=== PATIENT | female | born 2000 | race Caucasian/White ===

== ENCOUNTER 2018-08-28 06:30 | Emergency (ER) | payer OTHER ==
[~2018-08-28] VITALS: Ht 160 cm; Wt 46.7 kg
[2018-08-28] MEDS ORDERED: FAMOTIDINE 20MG/2ML IV (PEPCID) IV STA (06:44)
[2018-08-28] MEDS ORDERED: NS IV 1000 ML 1,000 ML IV STA (06:44)
[2018-08-28 06:45] LABS: BILIRUBIN,URINE NEGATIVE (NEGATIVE); CLARITY,URINE CLEAR; COLOR,URINE YELLOW; GLUCOSE, URINE (UA) NEGATIVE (NEGATIVE); KETONES,URINE NEGATIVE (NEGATIVE); LEUKOCYTE ESTERASE ,URINE 2+ (NEGATIVE); NITRITE,URINE NEGATIVE (NEGATIVE); PH,URINE 7 (5-9); PROTEIN,URINE 1+ (NEGATIVE); UROBILINOGEN,URINE NORMAL (NORMAL)
[2018-08-28] MEDS ORDERED: ONDANSETRON 4 MG/2 ML (SDV) Z0FRAN IVP ONE ×2 (06:45→07:30)
[2018-08-28 06:55] LABS: BASOPHILS % (AUTO) 0 % (0-10); EOSINOPHILS % (AUTO) 1 % (0-10); HEMATOCRIT 36 % (35-52); HEMOGLOBIN 12.3 G/DL (11.5-16.0); LYMPHOCYTES # (AUTO) 1.3 X 10^3 (1.0-4.0); LYMPHOCYTES % (AUTO) 24 % (12-44); MEAN CORPUSCULAR HEMOGLOBIN 30 PG (25-34); MEAN CORPUSCULAR HGB CONC 35 G/DL (32-36); MEAN CORPUSCULAR VOLUME 88 FL (80-99); MEAN PLATELET VOLUME 9.8 FL (7.4-10.4); MONOCYTES # (AUTO) 0.5 X 10^3 (0.0-1.0); MONOCYTES % (AUTO) 9 % (0-12); NEUTROPHILS # (AUTO) 3.6 X 10^3 (1.8-7.8); NEUTROPHILS % (AUTO) 65 % (42-75); PLATELET COUNT 188 10^3/uL (130-400); RED BLOOD COUNT 4.05 10^6/uL (4.35-5.85); RED CELL DISTRIBUTION WIDTH 12.9 % (10.0-14.5); WHITE BLOOD COUNT 5.4 10^3/uL (4.3-11.0)
[2018-08-28 06:57] LABS: BACTERIA,URINE NEGATIVE /HPF
[2018-08-28 06:58] LABS: RED BLOOD CELL CASTS,URINE RARE /LPF
--- NOTE | 2018-08-28 07:11 | ED General ---
General Chief Complaint: Abdominal/GI Problems Stated Complaint: POSS FOOD POISONING,KIDNEY PAIN Nursing Triage Note: PT STATES SHE BEGAN TO EXPERIENCE NAUSEA AND VOMITING AROUND 0200 TODAY AFTER EATING COMORAN TAKEOUT LAST NIGHT. Source of Information: Patient Exam Limitations: No Limitations History of Present Illness Date Seen by Provider: Aug 28, 2018 Time Seen by Provider: 06:40 Initial Comments Here with report of kidney pain, nausea, vomiting and diarrhea. Onset about 2 a.m. States that she ate some Azeri food at about 6 or 7 p.m. She was doing fine until midnight when she woke up feeling rumbly and then started vomiting and diarrhea that I am. States that she vomited multiple times and can't even keep water crackers down. Has had a few episodes of diarrhea. Denies blood in her vomit or stool. Reports that she has kidney problems and some sort which seems to be mostly related to urinary tract infections. She moved to the [facility] a few months ago from [place]. She is supposed to see kidney specialist for something in September although she is not exactly sure what that is. She reports that she has scar tissue in her kidneys. Does admit to recent runny nose. Feels like she has fevers. Reports body aches. Timing/Duration: 12 Hours Severity: Moderate Modifying Factors: improves with Rest Associated Systoms: No Chest Pain, No Cough; Fever/Chills, Nausea/Vomiting; No Shortness of Air, No Weakness Allergies and Home Medications Allergies Coded Allergies: No Known Drug Allergies (Unverified , 08/28/18) Patient Home Medication List Home Medication List Reviewed: Yes Review of Systems Review of Systems Constitutional: see HPI, chills, fever; No weakness EENTM: nose congestion; No throat pain Respiratory: No cough, No short of breath Cardiovascular: No chest pain, No syncope Gastrointestinal: abdominal pain (diffuse cramping), diarrhea, nausea, vomiting Genitourinary: No dysuria; pain : No LMP: Aug 07, 2018 Musculoskeletal: muscle pain; No muscle stiffness Skin: no symptoms reported All Other Systems Reviewed Negative Unless Noted: Yes Past Glltghk-Lbuqki-Kddqju Hx Past Med/Social Hx: Reviewed Nursing Past Med/Soc Hx Patient Social History Alcohol Use: Denies Use Recreational Drug Use: No Smoking Status: Never a Smoker Recent Foreign Travel: No Contact w/Someone Who Travel: No Recent Infectious Disease Expo: No Recent Hopitalizations: Yes (04/07/18) Immunizations Up To Date PED Vaccines UTD: Yes Seasonal Allergies Seasonal Allergies: No Past Medical History Surgeries: Yes (corrected left hip displasia ) Orthopedic Respiratory: No Cardiac: No Neurological: No Genitourinary: Yes Kidney Infection, UTI-Chronic Gastrointestinal: No Musculoskeletal: Yes (LEFT HIP DISPLASIA- CORRECTED) Endocrine: No HEENT: No Cancer: No Psychosocial: Yes (HOSPITALIZED FOR SUICIDE -04/24) Anxiety, Suicide Attempts, Depression Integumentary: No Family Medical History Reviewed Nursing Family Hx Physical Exam Vital Signs Vital Signs - First Documented 08/28/18 06:35 Temp 96.9 Pulse 136 Resp 22 B/P (MAP) 135/64 O2 Delivery Room Air Capillary Refill : Height, Weight, BMI Height: 5'3.00" Weight: 103lbs. oz. 46.613969fs; 14.06 BMI Method: General Appearance: WD/WN, Mild Distress HEENT: PERRL/EOMI, Pharyngeal Erythema, Other (mild nasal congestion with clear rhinorrhea and mild/moderate erythema) Neck: Full Range of Motion, Normal Inspection, Non Tender, Supple Respiratory: Lungs Clear, Normal Breath Sounds Cardiovascular: No Murmur, Tachycardia Gastrointestinal: Non Tender, Soft Back: Normal Inspection, No CVA Tenderness, No Vertebral Tenderness Extremity: Normal Range of Motion, Non Tender Neurologic/Psychiatric: Alert, Oriented x3 Skin: Normal Color, Warm/Dry Progress/Results/Core Measures Suspected Sepsis SIRS Temperature:96.9 Pulse: Respiratory Rate: Laboratory Tests 08/28/18 06:47: White Blood Count 5.4 Blood Pressure / Mean: Laboratory Tests 08/28/18 06:47: Creatinine 0.82, Platelet Count 188, Total Bilirubin 1.2H Results/Orders Lab Results Laboratory Tests Test 08/28/18 06:36 08/28/18 06:47 Range/Units Urine Color YELLOW Urine Clarity CLEAR Urine pH 7 5-9 Urine Specific [place] 1.010 L 1.016-1.022 Urine Protein 1+ H NEGATIVE Urine Glucose (UA) NEGATIVE NEGATIVE Urine Ketones NEGATIVE NEGATIVE Urine Nitrite NEGATIVE NEGATIVE Urine Bilirubin NEGATIVE NEGATIVE Urine Urobilinogen NORMAL NORMAL MG/DL Urine Leukocyte Esterase 2+ H NEGATIVE Urine RBC (Auto) NEGATIVE NEGATIVE Urine RBC NONE /HPF Urine WBC 10-25 H /HPF Urine Squamous Epithelial Cells 10-25 H /HPF Urine Crystals NONE /LPF Urine Bacteria NEGATIVE /HPF Urine Casts NONE /LPF Urine Red Blood Cell Casts RARE H /LPF Urine Mucus NEGATIVE /LPF Urine Culture Indicated YES White Blood Count 5.4 4.3-11.0 10^3/uL Red Blood Count 4.05 L 4.35-5.85 10^6/uL Hemoglobin 12.3 11.5-16.0 G/DL Hematocrit 36 35-52 % Mean Corpuscular Volume 88 80-99 FL Mean Corpuscular Hemoglobin 30 25-34 PG Mean Corpuscular Hemoglobin Concent 35 32-36 G/DL Red Cell Distribution Width 12.9 10.0-14.5 % Platelet Count 188 130-400 10^3/uL Mean Platelet Volume 9.8 7.4-10.4 FL Neutrophils (%) (Auto) 65 42-75 % Lymphocytes (%) (Auto) 24 12-44 % Monocytes (%) (Auto) 9 0-12 % Eosinophils (%) (Auto) 1 0-10 % Basophils (%) (Auto) 0 0-10 % Neutrophils # (Auto) 3.6 1.8-7.8 X 10^3 Lymphocytes # (Auto) 1.3 1.0-4.0 X 10^3 Monocytes # (Auto) 0.5 0.0-1.0 X 10^3 Eosinophils # (Auto) 0.0 0.0-0.3 10^3/uL Basophils # (Auto) 0.0 0.0-0.1 10^3/uL Sodium Level 140 135-145 MMOL/L Potassium Level 3.8 3.6-5.0 MMOL/L Chloride Level 112 H 98-107 MMOL/L Carbon Dioxide Level 18 L 21-32 MMOL/L Anion Gap 10 5-14 MMOL/L Blood Urea Nitrogen 10 7-18 MG/DL Creatinine 0.82 0.60-1.30 MG/DL Estimat Glomerular Filtration Rate > 60 BUN/Creatinine Ratio 12 Glucose Level 131 H 70-105 MG/DL Calcium Level 9.4 8.5-10.1 MG/DL Corrected Calcium 8.5-10.1 MG/DL Magnesium Level 2.1 1.8-2.4 MG/DL Total Bilirubin 1.2 H 0.1-1.0 MG/DL Aspartate Amino Transf (AST/SGOT) 15 5-34 U/L Alanine Aminotransferase (ALT/SGPT) 13 0-55 U/L Alkaline Phosphatase 82 40-136 U/L C-Reactive Protein High Sensitivity 0.62 H 0.00-0.50 MG/DL Total Protein 8.1 6.4-8.2 GM/DL Albumin 4.8 H 3.2-4.5 GM/DL Lipase 33 8-78 U/L My Orders Orders - AISLINN VELA MD Saline Lock/Iv-Start (08/28/18 06:36) Urine Bedside (08/28/18 06:36) Cbc With Automated Diff (08/28/18 06:36) Comprehensive Metabolic Panel (08/28/18 06:36) Hs C Reactive Protein (08/28/18 06:36) Ua Culture If Indicated (08/28/18 06:36) Ondansetron Injection (Zofran Injectio (08/28/18 06:45) Ns Iv 1000 Ml (Sodium Chloride 0.9%) (08/28/18 06:44) Famotidine Injection (Pepcid Injection) (08/28/18 06:44) Lipase (08/28/18 06:44) Magnesium (08/28/18 06:44) Urine Culture (08/28/18 06:36) Ketorolac Injection (Toradol Injection) (08/28/18 07:18) Ondansetron Injection (Zofran Injectio (08/28/18 07:30) Saline Lock/Iv-Start (08/28/18 07:38) Ns Iv 1000 Ml (Sodium Chloride 0.9%) (08/28/18 07:38) Promethazine Injection (Phenergan Injec (08/28/18 08:08) Diphenhydramine Injection (Benadryl Inje (08/28/18 08:15) Fentanyl Injection (Sublimaze Injection (08/28/18 08:55) Medications Given in ED Current Medications Medications Dose Ordered Sig/David Route Start Time Stop Time Status Last Admin Dose Admin Ondansetron HCl 4 mg ONCE ONCE IVP 08/28/18 06:45 08/28/18 06:47 DC 08/28/18 06:53 4 MG Ondansetron HCl 4 mg ONCE ONCE IVP 08/28/18 07:30 08/28/18 07:31 DC 08/28/18 07:29 4 MG Sodium Chloride 1,000 ml @ 0 mls/hr Q0M ONCE IV 08/28/18 07:38 08/28/18 07:39 DC 08/28/18 07:42 1,000 MLS/HR Vital Signs/I&O 08/28/18 06:35 Temp 96.9 Pulse 136 Resp 22 B/P (MAP) 135/64 O2 Delivery Room Air Capillary Refill : Point of Care Testing Urine -Bedside: Negative Progress Note : Progress Note Seen and evaluated. IV, labs, UA, normal saline 1 L bolus, Zofran 4 mg IV and Pepcid 20 mg IV ordered. Monitor patient. Patient with continued nausea and vomiting. Phenergan 12.5 mg IV and Benadryl 25 mg IV ordered. Patient was complaining of pain and did receive 15 mg of Toradol IV. Ultimately received 50 g of fentanyl IV. This did help significantly. 1010: Overall patient much improved. Labs reviewed. Question of urinary tract infection but appears to be grossly contaminated. We will wait pending cultures to treat. Discharged home with return precautions. Patient verbalize understanding instructions and agreement with plan. Departure Impression Primary Impression: Nausea and vomiting Qualified Codes: R11.2 - Nausea with vomiting, unspecified Additional Impression: Abdominal pain Qualified Codes: R10.84 - Generalized abdominal pain Disposition: 01 HOME, SELF-CARE Condition: Improved Departure-Patient Inst. Decision time for Depature: 10:16 Referrals: NO,LOCAL PHYSICIAN (PCP/Family) Primary Care Physician Patient Instructions: Acute Abdomen (Belly Pain), Child (DC), Nausea and Vomiting, Adult (DC) Add. Discharge Instructions: All discharge instructions reviewed with patient and/or family. Voiced understanding. Clear liquid for light diet for 24 hours and then advance as tolerated. Drink plenty of fluids. You may take ibuprofen 400 mg every 6 hours as needed for fever or pain. You may take Tylenol/acetaminophen 500 mg every 6 hours as needed for fever or pain. Follow-up with your DrVijay in a few days for recheck as needed. Return for worse pain, fever, vomiting, weakness, breathing problems or other concerns as needed. Scripts Ondansetron (Ondansetron Odt) 4 Mg Tab.rapdis 4 MG PO Q6H PRN for NAUSEA/VOMITING, #10 TAB 0 Refills Prov: AISLINN VELA MD 08/28/18 AISLINN VELA MD Aug 28, 2018 07:11
[2018-08-28 07:15] LABS: ALANINE AMINOTRANSFERASE 13 U/L (0-55); ALBUMIN 4.8 GM/DL (3.2-4.5); ALKALINE PHOSPHATASE 82 U/L (40-136); BILIRUBIN,TOTAL 1.2 MG/DL (0.1-1.0); BUN/CREATININE RATIO 12; CALCIUM 9.4 MG/DL (8.5-10.1); CARBON DIOXIDE 18 MMOL/L (21-32); CHLORIDE 112 MMOL/L (98-107); CREATININE SERUM 0.82 MG/DL (0.60-1.30); GFR ESTIMATED > 60; GLUCOSE 131 MG/DL (70-105); LIPASE 33 U/L (8-78); MAGNESIUM 2.1 MG/DL (1.8-2.4); POTASSIUM 3.8 MMOL/L (3.6-5.0); SODIUM 140 MMOL/L (135-145); TOTAL PROTEIN 8.1 GM/DL (6.4-8.2)
[2018-08-28] MEDS ORDERED: KETOROLAC 30 MG/ML VIAL IVP STA (07:18)
[2018-08-28] MEDS ORDERED: NS IV 1000 ML 1,000 ML IV ONE (07:38)
[2018-08-28] MEDS ORDERED: PROMETHAZINE INJ 25 MG/ML (PHENERGAN) AMP IVP STA (08:08)
[2018-08-28] MEDS ORDERED: diphenhydrAMINE 50 MG/ML INJ (BENADRYL) IM ONE (08:15)
[2018-08-28] MEDS ORDERED: diphenhydrAMINE 50 MG/ML INJ (BENADRYL) IVP ONE (08:15)
[2018-08-28] MEDS ORDERED: fentaNYL INJECTION 100 MCG/2 ML AMP IVP STA (08:55)
[2018-08-28] MEDS ORDERED: ONDA4TAB11 PO (10:19)
== END 2018-08-28 10:32 | disposition home or self-care (01) ==
LOC: ER 06:33
DX: R11.2 Nausea with vomiting, unspecified (principal); R10.84 Generalized abdominal pain; F41.9 Anxiety disorder, unspecified; F32.9 Major depressive disorder, single episode, unspecified; Z87.440 Personal history of urinary (tract) infections
CPT/HCPCS: 36415; 80053; 81000; 83690; 83735; 84703; 85025; 86141; 87088

== ENCOUNTER 2018-09-24 15:57 | Emergency (ER) | payer OTHER ==
[~2018-09-24] VITALS: Ht 167.6 cm; Wt 46.7 kg
[~2018-09-24 15:57] MED LIST: ONDA4TAB11 PO
[2018-09-24] MEDS ORDERED: KETOROLAC 30 MG/ML VIAL IVP ONE (17:15)
[2018-09-24] MEDS ORDERED: ONDANSETRON 4 MG/2 ML (SDV) Z0FRAN IVP ONE (17:15)
[2018-09-24] MEDS ORDERED: NS IV 1000 ML 1,000 ML IV SCH (17:15)
[2018-09-24 17:21] LABS: BASOPHILS % (AUTO) 0 % (0-10); EOSINOPHILS % (AUTO) 0 % (0-10); HEMATOCRIT 40 % (35-52); HEMOGLOBIN 14.1 G/DL (11.5-16.0); LYMPHOCYTES # (AUTO) 0.6 X 10^3 (1.0-4.0); LYMPHOCYTES % (AUTO) 8 % (12-44); MEAN CORPUSCULAR HEMOGLOBIN 31 PG (25-34); MEAN CORPUSCULAR HGB CONC 35 G/DL (32-36); MEAN CORPUSCULAR VOLUME 87 FL (80-99); MEAN PLATELET VOLUME 9.8 FL (7.4-10.4); MONOCYTES # (AUTO) 0.4 X 10^3 (0.0-1.0); MONOCYTES % (AUTO) 6 % (0-12); NEUTROPHILS # (AUTO) 6.5 X 10^3 (1.8-7.8); NEUTROPHILS % (AUTO) 86 % (42-75); PLATELET COUNT 180 10^3/uL (130-400); RED CELL DISTRIBUTION WIDTH 12.9 % (10.0-14.5); WHITE BLOOD COUNT 7.6 10^3/uL (4.3-11.0)
--- NOTE | 2018-09-24 17:28 | NUR ---
Pt arrived with kidney pain. Pt stated she has previously had infections. The pain started around 0800 this morning. She stated her heart is racing and hard to catch her breath. Pt was alert and oriented at arrival.
[2018-09-24 17:34] LABS: ALANINE AMINOTRANSFERASE 11 U/L (0-55); ALBUMIN 5.1 GM/DL (3.2-4.5); ALKALINE PHOSPHATASE 84 U/L (40-136); AMYLASE 34 U/L (25-125); BILIRUBIN,TOTAL 2.1 MG/DL (0.1-1.0); BUN/CREATININE RATIO 17; CALCIUM 9.7 MG/DL (8.5-10.1); CARBON DIOXIDE 21 MMOL/L (21-32); CHLORIDE 109 MMOL/L (98-107); CREATININE SERUM 0.78 MG/DL (0.60-1.30); GFR ESTIMATED > 60; GLUCOSE 105 MG/DL (70-105); LIPASE 25 U/L (8-78); POTASSIUM 3.8 MMOL/L (3.6-5.0); SODIUM 141 MMOL/L (135-145); TOTAL PROTEIN 8.4 GM/DL (6.4-8.2)
[2018-09-24 17:43] LABS: BAND NEUTROPHILS 8 %; BASOPHILS % (MANUAL) 0 %; EOSINOPHILS % (MANUAL) 0 %; LYMPHOCYTES % (MANUAL) 11 %; MONOCYTES % (MANUAL) 3 %; NEUTROPHILS % (MANUAL) 78 %; RBC MORPH NORMAL
[2018-09-24 18:14] LABS: BILIRUBIN,URINE NEGATIVE (NEGATIVE); CLARITY,URINE SLIGHTLY CLOUDY; COLOR,URINE YELLOW; GLUCOSE, URINE (UA) NEGATIVE (NEGATIVE); KETONES,URINE NEGATIVE (NEGATIVE); LEUKOCYTE ESTERASE ,URINE 2+ (NEGATIVE); NITRITE,URINE POSITIVE (NEGATIVE); PH,URINE 5 (5-9); PROTEIN,URINE 1+ (NEGATIVE); UROBILINOGEN,URINE NORMAL (NORMAL)
[2018-09-24 18:21] LABS: RBC,URINE RARE /HPF
[2018-09-24 18:22] LABS: BACTERIA,URINE LARGE /HPF
[2018-09-24] MEDS ORDERED: cefTRIAXone FOR IV USE 1,000 MG in NS (IVPB) 50 ML IV ONE (18:45)
[2018-09-24] MEDS ORDERED: PHEN-639 PO (18:57)
[2018-09-24] MEDS ORDERED: ONDN4T PO (18:57)
[2018-09-24] MEDS ORDERED: CEPH-507 PO (18:57)
--- NOTE | 2018-09-24 18:58 | ED Abdominal Pain ---
General Chief Complaint: General Problems/Pain Stated Complaint: ABDOMINAL PAIN, VOMITING Nursing Triage Note: Pt. advises she began experiencing abdominal pain radiating to her back at approximately 8am that has gotten progressively worse. She advises she was seen at the clinic and they advised her that her urine was normal. She advised that she feels as though her heart is racing. Source of Information: Patient Exam Limitations: No Limitations History of Present Illness Date Seen by Provider: Sep 24, 2018 Time Seen by Provider: 17:11 Initial Comments 17-year-old female who presents to the emergency room with complaints of suprapubic abdominal pain that radiates to her low back that started approximately 0800 of this morning. She denies any vaginal discharge she was seen and evaluated the [facility] today and they did a urinalysis which they reported was normal. She feels like she's been having chills on her heart is regular been racing. Denies taking her temperature to see if she is febrile. Timing/Duration: 12 Hours Severity/Quality: Mild, Burning, Cramping Location: Suprapubic Radiation: Back Associated Symptoms: Back Pain Allergies and Home Medications Allergies Coded Allergies: No Known Drug Allergies (Unverified , 08/28/18) Home Medications Cephalexin 500 Mg Capsule, 500 MG PO BID Prescribed by: MANOLO YEBOAH on 09/24/181856 Ondansetron 4 Mg Tab.rapdis, 4 MG PO Q6H PRN for NAUSEA/VOMITING Prescribed by: AISLINN VELA on 08/28/18 1019 Ondansetron HCl 4 Mg Tab, 4 MG PO Q4H PRN for NAUSEA/VOMITING-1ST LINE Prescribed by: MANOLO YEBOAH on 09/24/18 185 Phenazopyridine HCl 100 Mg Tablet, 100 MG PO TID Prescribed by: MANOLO YEBOAH on 09/24/181856 Patient Home Medication List Home Medication List Reviewed: Yes Review of Systems Review of Systems Constitutional: no symptoms reported, see HPI Gastrointestinal: See HPI, Abdominal Pain Musculoskeletal: see HPI, back pain Past Wbwzdsb-Oawucs-Akdfsr Hx Past Med/Social Hx: Reviewed Nursing Past Med/Soc Hx Patient Social History Alcohol Use: Denies Use Recreational Drug Use: No Smoking Status: Never a Smoker 2nd Hand Smoke Exposure: No Recent Foreign Travel: No Contact w/Someone Who Travel: No Recent Infectious Disease Expo: No Recent Hopitalizations: No Physical Abuse: No Sexual Abuse: No Mistreated: No Fear: No Immunizations Up To Date PED Vaccines UTD: Yes Seasonal Allergies Seasonal Allergies: No Past Medical History Surgeries: Yes (corrected left hip displasia ) Orthopedic Respiratory: No Cardiac: No Neurological: No Genitourinary: Yes Kidney Infection, UTI-Chronic Gastrointestinal: No Musculoskeletal: Yes (LEFT HIP DISPLASIA- CORRECTED) Endocrine: No HEENT: No Cancer: No Psychosocial: Yes (HOSPITALIZED FOR SUICIDE -04/24) Anxiety, Suicide Attempts, Depression Integumentary: No Family Medical History Reviewed Nursing Family Hx Physical Exam Vital Signs Vital Signs - First Documented 09/24/18 09/24/18 17:04 19:20 Temp 98.3 Pulse 155 Resp 16 B/P (MAP) 112/57 Pulse Ox 100 O2 Delivery Room Air Capillary Refill : Height/Weight/BMI Height: 5'6.00" Weight: 103lbs. oz. 46.502152yo; 14.06 BMI Method:Stated General Appearance: WD/WN, no apparent distress Respiratory: chest non-tender, lungs clear, normal breath sounds, no respiratory distress, no accessory muscle use Cardiovascular: normal peripheral pulses, regular rate, rhythm, no edema, no gallop, no JVD, no murmur Gastrointestinal: normal bowel sounds, non tender, soft, no organomegaly, no pulsatile mass Neurologic/Psychiatric: alert, normal mood/affect, oriented x 3 Skin: normal color, warm/dry Progress/Results/Core Measures Results/Orders Lab Results Laboratory Tests Test 09/24/18 17:10 09/24/18 18:02 Range/Units White Blood Count 7.6 4.3-11.0 10^3/uL Red Blood Count 4.60 4.35-5.85 10^6/uL Hemoglobin 14.1 11.5-16.0 G/DL Hematocrit 40 35-52 % Mean Corpuscular Volume 87 80-99 FL Mean Corpuscular Hemoglobin 31 25-34 PG Mean Corpuscular Hemoglobin Concent 35 32-36 G/DL Red Cell Distribution Width 12.9 10.0-14.5 % Platelet Count 180 130-400 10^3/uL Mean Platelet Volume 9.8 7.4-10.4 FL Neutrophils (%) (Auto) 86 H 42-75 % Lymphocytes (%) (Auto) 8 L 12-44 % Monocytes (%) (Auto) 6 0-12 % Eosinophils (%) (Auto) 0 0-10 % Basophils (%) (Auto) 0 0-10 % Neutrophils # (Auto) 6.5 1.8-7.8 X 10^3 Lymphocytes # (Auto) 0.6 L 1.0-4.0 X 10^3 Monocytes # (Auto) 0.4 0.0-1.0 X 10^3 Eosinophils # (Auto) 0.0 0.0-0.3 10^3/uL Basophils # (Auto) 0.0 0.0-0.1 10^3/uL Neutrophils % (Manual) 78 % Lymphocytes % (Manual) 11 % Monocytes % (Manual) 3 % Eosinophils % (Manual) 0 % Basophils % (Manual) 0 % Band Neutrophils 8 % Blood Morphology Comment NORMAL Sodium Level 141 135-145 MMOL/L Potassium Level 3.8 3.6-5.0 MMOL/L Chloride Level 109 H 98-107 MMOL/L Carbon Dioxide Level 21 21-32 MMOL/L Anion Gap 11 5-14 MMOL/L Blood Urea Nitrogen 13 7-18 MG/DL Creatinine 0.78 0.60-1.30 MG/DL Estimat Glomerular Filtration Rate > 60 BUN/Creatinine Ratio 17 Glucose Level 105 70-105 MG/DL Calcium Level 9.7 8.5-10.1 MG/DL Corrected Calcium 8.5-10.1 MG/DL Total Bilirubin 2.1 H 0.1-1.0 MG/DL Aspartate Amino Transf (AST/SGOT) 14 5-34 U/L Alanine Aminotransferase (ALT/SGPT) 11 0-55 U/L Alkaline Phosphatase 84 40-136 U/L Total Protein 8.4 H 6.4-8.2 GM/DL Albumin 5.1 H 3.2-4.5 GM/DL Amylase Level 34 25-125 U/L Lipase 25 8-78 U/L Serum Test, Qualitative NEGATIVE NEGATIVE Urine Color YELLOW Urine Clarity SLIGHTLY CLOUDY Urine pH 5 5-9 Urine Specific [place] 1.015 L 1.016-1.022 Urine Protein 1+ H NEGATIVE Urine Glucose (UA) NEGATIVE NEGATIVE Urine Ketones NEGATIVE NEGATIVE Urine Nitrite POSITIVE H NEGATIVE Urine Bilirubin NEGATIVE NEGATIVE Urine Urobilinogen NORMAL NORMAL MG/DL Urine Leukocyte Esterase 2+ H NEGATIVE Urine RBC (Auto) 3+ H NEGATIVE Urine RBC RARE /HPF Urine WBC 5-10 H /HPF Urine Squamous Epithelial Cells 5-10 /HPF Urine Crystals NONE /LPF Urine Bacteria LARGE H /HPF Urine Casts NONE /LPF Urine Mucus NEGATIVE /LPF Urine Culture Indicated YES Micro Results Microbiology 09/24/18 Urine Culture - Final, Complete Escherichia coli My Orders Orders - MANOLO YEBOAH Comprehensive Metabolic Panel (09/24/18 17:11) Lipase (09/24/18 17:11) Amylase (09/24/18 17:11) Ua Culture If Indicated (09/24/18 17:11) Hcg,Qualitative Serum (09/24/18 17:11) Saline Lock/Iv-Start (09/24/18 17:11) Cbc With Automated Diff (09/24/18 17:11) Ketorolac Injection (Toradol Injection) (09/24/18 17:15) Ns Iv 1000 Ml (Sodium Chloride 0.9%) (09/24/18 17:15) Ondansetron Injection (Zofran Injectio (09/24/18 17:15) Manual Differential (09/24/18 17:10) Urine Culture (09/24/18 18:02) Ceftriaxone For Iv Use (Rocephin For I (09/24/18 18:45) Medications Given in ED Vital Signs/I&O 09/24/18 09/24/18 17:04 19:20 Temp 98.3 99.6 Pulse 155 100 Resp 16 18 B/P (MAP) 112/57 Pulse Ox 100 O2 Delivery Room Air Room Air Progress Progress Note : Time: 18:55 Progress Note I have seen and evaluated the patient. I've informed her of her laboratory findings. I have given her an IV dose of Rocephin. She agrees with plan of care , plans for discharge, return precautions were given. Departure Impression Primary Impression: Urinary tract infection Disposition: 01 HOME, SELF-CARE Condition: Stable/Unchanged Departure-Patient Inst. Decision time for Depature: 18:55 Referrals: [facility] (PCP/Family) Primary Care Physician Patient Instructions: Urinary Tract Infection, Adult (DC) Add. Discharge Instructions: Take medications as directed. Ibuprofen and Tylenol as directed by the bottle for pain and fever. Follow-up with [facility] within 1 week if no improvement. The Pyridium will turn her urine bright orange, this is normal, do not be alarmed. Return back to the emergency room for worsening symptoms or concerns as needed. All discharge instructions reviewed with patient and/or family. Voiced understanding. Scripts Phenazopyridine HCl (Pyridium) 100 Mg Tablet 100 MG PO TID, #6 TAB Prov: MANOLO YEBOAH 09/24/18 Ondansetron HCl (Zofran) 4 Mg Tab 4 MG PO Q4H PRN for NAUSEA/VOMITING-1ST LINE, #14 TAB Prov: MANOLO YEBOAH 09/24/18 Cephalexin (Keflex) 500 Mg Capsule 500 MG PO BID for 7 Days, #14 CAP Prov: MANOLO YEBOAH 09/24/18 MANOLO YEBOAH Sep 24, 2018 18:58
== END 2018-09-24 19:20 | disposition home or self-care (01) ==
LOC: EDUNIT# 15:57 → ER 15:58
DX: N39.0 Urinary tract infection, site not specified (principal); F41.9 Anxiety disorder, unspecified; F32.9 Major depressive disorder, single episode, unspecified; Z91.5 Personal history of self-harm; Z87.440 Personal history of urinary (tract) infections; Z87.448 Personal history of other diseases of urinary system
CPT/HCPCS: 36415; 80053; 81000; 82150; 83690; 84703; 85007; 85027; 87077; 87088; 87186

== ENCOUNTER 2018-10-26 09:06 | Emergency (ER) | payer OTHER ==
[~2018-10-26] VITALS: Ht 152.4 cm; Wt 52.6 kg
[~2018-10-26 09:06] MED LIST changes: +CEPH-507 PO; +ONDN4T PO; +PHEN-639 PO
[2018-10-26] MEDS ORDERED: NS IV 1000 ML 1,000 ML IV STA (09:34)
[2018-10-26] MEDS ORDERED: ONDANSETRON 4 MG/2 ML (SDV) Z0FRAN IVP ONE (09:45)
[2018-10-26 09:49] LABS: BILIRUBIN,URINE NEGATIVE (NEGATIVE); CLARITY,URINE SLIGHTLY CLOUDY; COLOR,URINE YELLOW; GLUCOSE, URINE (UA) NEGATIVE (NEGATIVE); KETONES,URINE NEGATIVE (NEGATIVE); LEUKOCYTE ESTERASE ,URINE 1+ (NEGATIVE); NITRITE,URINE NEGATIVE (NEGATIVE); PH,URINE 7 (5-9); PROTEIN,URINE 2+ (NEGATIVE); UROBILINOGEN,URINE NORMAL (NORMAL)
[2018-10-26 09:56] LABS: BACTERIA,URINE FEW /HPF; RBC,URINE RARE /HPF
--- NOTE | 2018-10-26 09:56 | ED GI ---
General Chief Complaint: General Problems/Pain Stated Complaint: POSS MED REACTION Nursing Triage Note: AMB TO ROOM WITH MALE ON ADMIT MALE WANTD TO SPEAK FOR PATIENT ASKED MALE TO LET ME TALK WITH HER. PATIENT REPORTS SAW DECAL DECORATOR AT [facility] FOR DREPRESSION YESTERDAY WAS STARED ON SERTALONE 100MG IS TO TAKE A 1/2 TABLET. APX 6A THIS AM WOKE UP SHAKEY WITH VOMITING AND DIARRHEA. Source of Information: Patient Exam Limitations: No Limitations (LAYLA ERAZO STUDENT) History of Present Illness Date Seen by Provider: Oct 26, 2018 Time Seen by Provider: 09:33 Initial Comments 17 y/o F presented for nausea, vomiting, and some diarrhea that started this morning at about 0600. She denies fever or chills overnight. She was started on sertraline 50mg for depression and anxiety yesterday by [facility] and thinks that this may be a reaction to this medication. She denies any prior reactions. She also has generalized shakes, which she gets when she is sick. She has not had any sick contacts. She is unable to tolerate food or liquid at this time. Timing/Duration: 1-3 Hours Severity/Quality: Mild, Cramping, Dull Location: Generalized Abdomen Radiation: No Radiation Activities at Onset: Other (upon waking this morning) Modifying Factors: Worsens With Eating; Improves With Lying down, Improves With Resting; Worsens With Vomiting Associated Symptoms: No Chest Pain; Diaphoresis; No Fever/Chills; Nausea/ Vomiting; No Rash, No Shortness of Air (LAYLA ERAZO STUDENT) Timing/Duration: 1-3 Hours, Constant Severity/Quality: Mild, Moderate, Cramping, Dull Location: Generalized Abdomen Radiation: No Radiation Modifying Factors: Worsens With Eating; Improves With Resting Associated Symptoms: Nausea/Vomiting; No Shortness of Air, No Weakness ( AISLINN VELA MD) Allergies and Home Medications Allergies Coded Allergies: No Known Drug Allergies (Unverified , 08/28/18) Home Medications Cephalexin 500 Mg Capsule, 500 MG PO BID Prescribed by: MANOLO YEBOAH on 09/24/18 1857 Ondansetron 4 Mg Tab.rapdis, 4 MG PO Q6H PRN for NAUSEA/VOMITING Prescribed by: AISLINN VELA on 08/28/18 1019 Ondansetron HCl 4 Mg Tab, 4 MG PO Q4H PRN for NAUSEA/VOMITING-1ST LINE Prescribed by: MANOLO YEBOAH on 09/24/181856 Phenazopyridine HCl 100 Mg Tablet, 100 MG PO TID Prescribed by: MANOLO YEBOAH on 09/24/181856 Patient Home Medication List Home Medication List Reviewed: Yes (LAYLA ERAZO) Home Medication List Reviewed: Yes (AISLINN VELA MD) Review of Systems Review of Systems Constitutional: No chills; diaphoresis; No fever; malaise, other (generalized shakes) EENTM: No Mouth Swelling, No Throat Swelling Respiratory: Denies Shortness of Air, Denies Wheezing Cardiovascular: Denies Chest Pain, Denies Lightheadedness Gastrointestinal: Abdominal Pain, Diarrhea, Nausea, Poor Appetite, Poor Fluid Intake, Vomiting Genitourinary: Denies Burning, Denies Frequency, Denies Flank Pain Musculoskeletal: No muscle pain, No muscle stiffness, No muscle cramps Skin: No pruritus, No rash Psychiatric/Neurological: Anxiety (started on sertraline 50mg yesterday), Depressed (LAYLA ERAZO) Constitutional: see HPI EENTM: No Symptoms Reported Respiratory: No Symptoms Reported Cardiovascular: No Symptoms Reported Gastrointestinal: See HPI; Denies Constipated, Denies Rectal Bleeding Genitourinary: No Symptoms Reported (AISLINN VELA MD) All Other Systems Reviewed Negative Unless Noted: Yes (AISLINN VELA MD) Past Rvlrkku-Ijlilp-Csbjyh Hx Past Med/Social Hx: Reviewed Nursing Past Med/Soc Hx (LAYLA ERAZO) Past Med/Social Hx: Reviewed Nursing Past Med/Soc Hx (AISLINN VELA MD) Patient Social History Alcohol Use: Denies Use Recreational Drug Use: No Smoking Status: Never a Smoker 2nd Hand Smoke Exposure: No Recent Foreign Travel: No Contact w/Someone Who Travel: No Recent Infectious Disease Expo: No Recent Hopitalizations: No (LAYLA ERAZO) Immunizations Up To Date PED Vaccines UTD: Yes (LAYLA ERAZO) Seasonal Allergies Seasonal Allergies: No (LAYLA ERAZO) Past Medical History Surgeries: Yes (corrected left hip displasia ) Orthopedic Respiratory: No Cardiac: No Neurological: No Genitourinary: Yes Kidney Infection, UTI-Chronic Gastrointestinal: No Musculoskeletal: Yes (LEFT HIP DISPLASIA- CORRECTED) Endocrine: No HEENT: No Cancer: No Psychosocial: Yes (HOSPITALIZED FOR SUICIDE -04/24) Anxiety, Suicide Attempts, Depression Integumentary: No (LAYLA ERAZO STUDENT) Family Medical History Reviewed Nursing Family Hx (LAYLA ERAZO) Reviewed Nursing Family Hx (AISLINN VELA MD) No Pertinent Family Hx (LAYLA ERAZO) No Pertinent Family Hx (AISLINN VELA MD) Physical Exam Vital Signs Vital Signs - First Documented 10/26/18 09:20 Temp 97.6 Pulse 131 Resp 18 B/P (MAP) 119/76 O2 Delivery Room Air (AISLINN VELA MD) Vital Signs Capillary Refill : (LAYLA ERAZO) Height/Weight/BMI Height: 5'6.00" Weight: 116lbs. oz. [id number]; 14.06 BMI Method:Stated General Appearance: WD/WN, mild distress, other (generalized body movements) HEENT: PERRL/EOMI, normal ENT inspection, TMs normal, pharynx normal Neck: non-tender, full range of motion, supple, normal inspection Respiratory: chest non-tender, lungs clear, normal breath sounds, no respiratory distress Cardiovascular: regular rate, rhythm, no edema, no murmur Gastrointestinal: normal bowel sounds; No distended; guarding; No rebound; tenderness (generlized tenderness) Extremities: non-tender, no pedal edema, no calf tenderness Back: normal inspection, no CVA tenderness, no vertebral tenderness Neurologic/Psychiatric: no motor/sensory deficits, alert, oriented x 3, other ( anxious demeanor ) Skin: normal color, warm/dry; No ecchymosis, No rash (LAYLA ERAZO) General Appearance: WD/WN, mild distress HEENT: PERRL/EOMI, pharynx normal Neck: full range of motion, supple Respiratory: lungs clear, normal breath sounds Cardiovascular: no murmur, tachycardia Gastrointestinal: soft; No guarding; tenderness (generlized tenderness) Extremities: non-tender, no pedal edema, no calf tenderness Back: normal inspection, no CVA tenderness, no vertebral tenderness Neurologic/Psychiatric: no motor/sensory deficits, alert, oriented x 3, other ( anxious demeanor ) Skin: normal color, warm/dry (AISLINN VELA MD) Progress/Results/Core Measures Results/Orders Lab Results Laboratory Tests Test 10/26/18 09:39 10/26/18 10:01 Range/Units Urine Color YELLOW Urine Clarity SLIGHTLY CLOUDY Urine pH 7 5-9 Urine Specific [place] 1.010 L 1.016-1.022 Urine Protein 2+ H NEGATIVE Urine Glucose (UA) NEGATIVE NEGATIVE Urine Ketones NEGATIVE NEGATIVE Urine Nitrite NEGATIVE NEGATIVE Urine Bilirubin NEGATIVE NEGATIVE Urine Urobilinogen NORMAL NORMAL MG/DL Urine Leukocyte Esterase 1+ H NEGATIVE Urine RBC (Auto) NEGATIVE NEGATIVE Urine RBC RARE /HPF Urine WBC 10-25 H /HPF Urine Squamous Epithelial Cells 10-25 H /HPF Urine Crystals NONE /LPF Urine Bacteria FEW H /HPF Urine Casts NONE /LPF Urine Mucus SMALL H /LPF Urine Culture Indicated YES Urine Opiates Screen NEGATIVE NEGATIVE Urine Oxycodone Screen NEGATIVE NEGATIVE Urine Methadone Screen NEGATIVE NEGATIVE Urine Propoxyphene Screen NEGATIVE NEGATIVE Urine Barbiturates Screen NEGATIVE NEGATIVE Ur Tricyclic Antidepressants Screen NEGATIVE NEGATIVE Urine Phencyclidine Screen NEGATIVE NEGATIVE Urine Amphetamines Screen NEGATIVE NEGATIVE Urine Methamphetamines Screen NEGATIVE NEGATIVE Urine Benzodiazepines Screen NEGATIVE NEGATIVE Urine Cocaine Screen NEGATIVE NEGATIVE Urine Cannabinoids Screen POSITIVE H NEGATIVE White Blood Count 7.9 4.3-11.0 10^3/uL Red Blood Count 4.22 L 4.35-5.85 10^6/uL Hemoglobin 12.8 11.5-16.0 G/DL Hematocrit 37 35-52 % Mean Corpuscular Volume 87 80-99 FL Mean Corpuscular Hemoglobin 30 25-34 PG Mean Corpuscular Hemoglobin Concent 35 32-36 G/DL Red Cell Distribution Width 12.8 10.0-14.5 % Platelet Count 166 130-400 10^3/uL Mean Platelet Volume 9.9 7.4-10.4 FL Neutrophils (%) (Auto) 76 H 42-75 % Lymphocytes (%) (Auto) 17 12-44 % Monocytes (%) (Auto) 7 0-12 % Eosinophils (%) (Auto) 0 0-10 % Basophils (%) (Auto) 0 0-10 % Neutrophils # (Auto) 6.0 1.8-7.8 X 10^3 Lymphocytes # (Auto) 1.3 1.0-4.0 X 10^3 Monocytes # (Auto) 0.6 0.0-1.0 X 10^3 Eosinophils # (Auto) 0.0 0.0-0.3 10^3/uL Basophils # (Auto) 0.0 0.0-0.1 10^3/uL Sodium Level 139 135-145 MMOL/L Potassium Level 3.6 3.6-5.0 MMOL/L Chloride Level 107 98-107 MMOL/L Carbon Dioxide Level 19 L 21-32 MMOL/L Anion Gap 13 5-14 MMOL/L Blood Urea Nitrogen 10 7-18 MG/DL Creatinine 0.78 0.60-1.30 MG/DL Estimat Glomerular Filtration Rate > 60 BUN/Creatinine Ratio 13 Glucose Level 109 H 70-105 MG/DL Calcium Level 10.2 H 8.5-10.1 MG/DL Corrected Calcium 8.5-10.1 MG/DL Total Bilirubin 1.2 H 0.1-1.0 MG/DL Aspartate Amino Transf (AST/SGOT) 22 5-34 U/L Alanine Aminotransferase (ALT/SGPT) 14 0-55 U/L Alkaline Phosphatase 81 40-136 U/L Total Protein 8.0 6.4-8.2 GM/DL Albumin 4.9 H 3.2-4.5 GM/DL (AISLINN VELA MD) My Orders Orders - AISLINN VELA MD Cbc With Automated Diff (10/26/18 09:34) Comprehensive Metabolic Panel (10/26/18 09:34) Ua Culture If Indicated (10/26/18 09:34) Ondansetron Injection (Zofran Injectio (10/26/18 09:45) Ns Iv 1000 Ml (Sodium Chloride 0.9%) (10/26/18 09:34) Saline Lock/Iv-Start (10/26/18 09:34) Drug Screen Stat (Urine) (10/26/18 09:37) Urine Bedside (10/26/18 09:43) Urine Culture (10/26/18 09:39) (AISLINN VELA MD) Medications Given in ED Current Medications Medications Dose Ordered Sig/David Route Start Time Stop Time Status Last Admin Dose Admin Ondansetron HCl 4 mg ONCE ONCE IVP 10/26/18 09:45 10/26/18 09:46 DC 10/26/18 10:08 4 MG (AISLINN VELA MD) Vital Signs/I&O 10/26/18 09:20 Temp 97.6 Pulse 131 Resp 18 B/P (MAP) 119/76 O2 Delivery Room Air (AISLINN VELA MD) Progress Progress Note : Time: 09:58 Progress Note CBC, CMP, UA, UDS, urine preg pending. IVF and zofran for nausea. Monitor patient. (LAYLA ERAZO STUDENT) Progress Note : Progress Note I have seen and evaluated the patient and agree with above except as indicated. I have directed the plan of care. Patient is here with vomiting and diarrhea for a few hours. She is shaking which she states she does when she gets sick. She states she is done that all her life. She is tachycardic. She did just recently start sertraline has been on that previously. We will check labs and UA as she recently had urinary tract infection. Normal saline 1 L bolus and Zofran 4 mg IV ordered. Monitor patient. 1150: Patient is doing better. I did instruct her to follow-up with her Dr. about continuing sertraline. Discharged home with return precautions. Patient verbalize understanding instructions and agreement with plan. (AISLINN VELA MD) Departure Impression Primary Impression: Vomiting and diarrhea Disposition: 01 HOME, SELF-CARE Condition: Improved Departure-Patient Inst. Decision time for Depature: 11:50 (AISLINN VELA MD) Referrals: [facility] [place] ([place]/Family) Primary Care Physician Patient Instructions: Diarrhea in Adolescents and Adults, Nausea and Vomiting, Adult (DC) Add. Discharge Instructions: All discharge instructions reviewed with patient and/or family. Voiced understanding. Clear liquid diet for 24 hours and then advance as tolerated. Eat light after that. Drink plenty of fluids. Follow-up with your doctor regarding the sertraline to determine if you need to continue to take that. Return for worse pain, fever, vomiting, weakness, breathing problems or other concerns as needed. LAYLA ERAZO STUDENT Oct 26, 2018 09:56 AISLINN VELA MD Oct 26, 2018 10:15
[2018-10-26 10:10] LABS: BASOPHILS % (AUTO) 0 % (0-10); EOSINOPHILS % (AUTO) 0 % (0-10); HEMATOCRIT 37 % (35-52); HEMOGLOBIN 12.8 G/DL (11.5-16.0); LYMPHOCYTES # (AUTO) 1.3 X 10^3 (1.0-4.0); LYMPHOCYTES % (AUTO) 17 % (12-44); MEAN CORPUSCULAR HEMOGLOBIN 30 PG (25-34); MEAN CORPUSCULAR HGB CONC 35 G/DL (32-36); MEAN CORPUSCULAR VOLUME 87 FL (80-99); MEAN PLATELET VOLUME 9.9 FL (7.4-10.4); MONOCYTES # (AUTO) 0.6 X 10^3 (0.0-1.0); MONOCYTES % (AUTO) 7 % (0-12); NEUTROPHILS % (AUTO) 76 % (42-75); PLATELET COUNT 166 10^3/uL (130-400); RED CELL DISTRIBUTION WIDTH 12.8 % (10.0-14.5); WHITE BLOOD COUNT 7.9 10^3/uL (4.3-11.0)
[2018-10-26 10:12] LABS: AMPHETAMINE SCREEN, URINE NEGATIVE (NEGATIVE); BARBITURATE SCREEN URINE NEGATIVE (NEGATIVE); BENZODIAZEPINES SCREEN URINE NEGATIVE (NEGATIVE); CANNABINOID SCREEN, URINE POSITIVE (NEGATIVE); COCAINE SCREEN URINE NEGATIVE (NEGATIVE); METHADONE STAT NEGATIVE (NEGATIVE); METHAMPHETAMINE SCREEN URINE S NEGATIVE (NEGATIVE); OPIATE SCREEN URINE NEGATIVE (NEGATIVE); OXYCODONE STAT NEGATIVE (NEGATIVE); PROPOXYPHENE STAT NEGATIVE (NEGATIVE); TRICYCLIC ANTIDEPRESSANTS SCRE NEGATIVE (NEGATIVE)
[2018-10-26 10:37] LABS: ALANINE AMINOTRANSFERASE 14 U/L (0-55); ALBUMIN 4.9 GM/DL (3.2-4.5); ALKALINE PHOSPHATASE 81 U/L (40-136); BILIRUBIN,TOTAL 1.2 MG/DL (0.1-1.0); BUN/CREATININE RATIO 13; CALCIUM 10.2 MG/DL (8.5-10.1); CARBON DIOXIDE 19 MMOL/L (21-32); CHLORIDE 107 MMOL/L (98-107); CREATININE SERUM 0.78 MG/DL (0.60-1.30); GFR ESTIMATED > 60; GLUCOSE 109 MG/DL (70-105); POTASSIUM 3.6 MMOL/L (3.6-5.0); SODIUM 139 MMOL/L (135-145)
== END 2018-10-26 12:08 | disposition home or self-care (01) ==
LOC: EDUNIT# 09:06 → ER 09:09
DX: R11.2 Nausea with vomiting, unspecified (principal); R19.7 Diarrhea, unspecified; F41.9 Anxiety disorder, unspecified; F32.9 Major depressive disorder, single episode, unspecified; Z98.890 Other specified postprocedural states; Z87.448 Personal history of other diseases of urinary system; Z87.440 Personal history of urinary (tract) infections; Z91.5 Personal history of self-harm
CPT/HCPCS: 36415; 80053; 80306; 81000; 84703; 85025; 87088; 96374

== ENCOUNTER 2018-12-13 10:26 | Emergency (ER) | payer OTHER ==
[~2018-12-13] VITALS: Ht 162.6 cm; Wt 52.6 kg
[2018-12-13 11:13] LABS: BILIRUBIN,URINE NEGATIVE (NEGATIVE); CLARITY,URINE SLIGHTLY CLOUDY; COLOR,URINE YELLOW; GLUCOSE, URINE (UA) NEGATIVE (NEGATIVE); KETONES,URINE 1+ (NEGATIVE); LEUKOCYTE ESTERASE ,URINE 3+ (NEGATIVE); NITRITE,URINE POSITIVE (NEGATIVE); PH,URINE 6 (5-9); PROTEIN,URINE 1+ (NEGATIVE); UROBILINOGEN,URINE NORMAL (NORMAL)
[2018-12-13] MEDS ORDERED: ONDANSETRON 4 MG/2 ML (SDV) Z0FRAN IVP ONE (11:15)
[2018-12-13 11:20] LABS: BACTERIA,URINE LARGE /HPF; SQUAMOUS EPITHELIAL CELL,UR 25-50 /HPF; WBC,URINE 50-100 /HPF
[2018-12-13 11:28] LABS: BASOPHILS % (AUTO) 1 % (0-10); EOSINOPHILS % (AUTO) 0 % (0-10); HEMATOCRIT 37 % (35-52); HEMOGLOBIN 13.1 G/DL (11.5-16.0); LYMPHOCYTES # (AUTO) 0.6 X 10^3 (1.0-4.0); LYMPHOCYTES % (AUTO) 21 % (12-44); MEAN CORPUSCULAR HEMOGLOBIN 31 PG (25-34); MEAN CORPUSCULAR HGB CONC 35 G/DL (32-36); MEAN CORPUSCULAR VOLUME 88 FL (80-99); MONOCYTES # (AUTO) 0.5 X 10^3 (0.0-1.0); MONOCYTES % (AUTO) 16 % (0-12); NEUTROPHILS # (AUTO) 1.9 X 10^3 (1.8-7.8); NEUTROPHILS % (AUTO) 63 % (42-75); PLATELET COUNT 138 10^3/uL (130-400); RED CELL DISTRIBUTION WIDTH 13.1 % (10.0-14.5)
--- NOTE | 2018-12-13 11:39 | ED Abdominal Pain ---
General Chief Complaint: Abdominal/GI Problems Stated Complaint: ABD PAIN;VOMITING Nursing Triage Note: AMB TO ROOM REPORTS LAST NIGHT COULD NO T SLEEP FELT LIKE SHE HAD SINUS INFECTION TOOK OTC COLD AND SINUS MEDS STILL COULD NOT SLEEP. AND SHE THINKS MEDS CAUSED LOW ABD PAIN Sepsis Screen: No Definite Risk Source of Information: Patient Exam Limitations: No Limitations History of Present Illness Date Seen by Provider: Dec 13, 2018 Time Seen by Provider: 11:00 Initial Comments 18-year-old female who presents to the emergency room with complaints of nausea and vomiting and it does lower abdominal pain that started this morning. She reports that she has had an upper respiratory infection and took some over-the- counter cold cough flu medications that she believed to cause her to be nauseated. She denies constipation or diarrhea. Denies fevers. Timing/Duration: 4-6 Hours Severity/Quality: Mild Location: Suprapubic Radiation: No Radiation Associated Symptoms: No Fever/Chills; Nausea/Vomiting Allergies and Home Medications Allergies Coded Allergies: No Known Drug Allergies (Unverified , 08/28/18) Home Medications Cephalexin 500 Mg Capsule, 500 MG PO BID Prescribed by: MANOLO YEBOAH on 09/24/181856 Nitrofurantoin Monohyd/M-Cryst 100 Mg Capsule, 1 TAB PO BID Prescribed by: MANOLO YEBOAH on 12/13/18 1220 Ondansetron 4 Mg Tab.rapdis, 4 MG PO Q6H PRN for NAUSEA/VOMITING Prescribed by: AISLINN VELA on 08/28/18 1019 Ondansetron HCl 4 Mg Tab, 4 MG PO Q4H PRN for NAUSEA/VOMITING-1ST LINE Prescribed by: MANOLO YEBOAH on 09/24/18 1857 Ondansetron HCl 4 Mg Tab, 4 MG PO Q4H PRN for NAUSEA/VOMITING-1ST LINE Prescribed by: MANOLO YEBOAH on 12/13/18 1220 Phenazopyridine HCl 100 Mg Tablet, 100 MG PO TID Prescribed by: MANOLO YEBOAH on 09/24/18 185 Patient Home Medication List Home Medication List Reviewed: Yes Review of Systems Review of Systems Constitutional: see HPI; No chills, No fever Gastrointestinal: See HPI, Abdominal Pain, Nausea, Vomiting All Other Systems Reviewed Negative Unless Noted: Yes Past Phiwbrk-Mxtzwp-Glqlbt Hx Past Med/Social Hx: Reviewed Nursing Past Med/Soc Hx Patient Social History Alcohol Use: Denies Use Recreational Drug Use: No Smoking Status: Never a Smoker 2nd Hand Smoke Exposure: No Recent Foreign Travel: No Contact w/Someone Who Travel: No Recent Infectious Disease Expo: No Recent Hopitalizations: No Immunizations Up To Date PED Vaccines UTD: Yes Seasonal Allergies Seasonal Allergies: No Past Medical History Surgeries: Yes (corrected left hip displasia ) Orthopedic Respiratory: No Cardiac: No Neurological: No Genitourinary: Yes Kidney Infection, UTI-Chronic Gastrointestinal: No Musculoskeletal: Yes (LEFT HIP DISPLASIA- CORRECTED) Endocrine: No HEENT: No Cancer: No Psychosocial: Yes (HOSPITALIZED FOR SUICIDE -04/24) Anxiety, Suicide Attempts, Depression Integumentary: No Family Medical History Reviewed Nursing Family Hx No Pertinent Family Hx Physical Exam Vital Signs Vital Signs - First Documented 12/13/18 10:54 Temp 97.7 Pulse 107 Resp 18 B/P (MAP) 110/70 (83) Pulse Ox 99 O2 Delivery Room Air Capillary Refill : Less Than 3 Seconds Height/Weight/BMI Height: 5'4.00" Weight: 116lbs. oz. 52.766862fl; 14.06 BMI Method:Stated General Appearance: WD/WN, no apparent distress Respiratory: chest non-tender, lungs clear, normal breath sounds, no respiratory distress, no accessory muscle use Cardiovascular: normal peripheral pulses, regular rate, rhythm, no edema, no gallop, no JVD, no murmur Gastrointestinal: normal bowel sounds, soft, no organomegaly, no pulsatile mass , tenderness Neurologic/Psychiatric: alert, normal mood/affect, oriented x 3 Skin: normal color, warm/dry Progress/Results/Core Measures Results/Orders Lab Results Laboratory Tests Test 12/13/18 11:04 12/13/18 11:21 Range/Units Urine Color YELLOW Urine Clarity SLIGHTLY CLOUDY Urine pH 6 5-9 Urine Specific [place] 1.010 L 1.016-1.022 Urine Protein 1+ H NEGATIVE Urine Glucose (UA) NEGATIVE NEGATIVE Urine Ketones 1+ H NEGATIVE Urine Nitrite POSITIVE H NEGATIVE Urine Bilirubin NEGATIVE NEGATIVE Urine Urobilinogen NORMAL NORMAL MG/DL Urine Leukocyte Esterase 3+ H NEGATIVE Urine RBC (Auto) 5+ H NEGATIVE Urine RBC 2-5 H /HPF Urine WBC 50-100 H /HPF Urine Squamous Epithelial Cells 25-50 H /HPF Urine Crystals NONE /LPF Urine Bacteria LARGE H /HPF Urine Casts NONE /LPF Urine Mucus NEGATIVE /LPF Urine Culture Indicated YES White Blood Count 3.0 L 4.3-11.0 10^3/uL Red Blood Count 4.23 L 4.35-5.85 10^6/uL Hemoglobin 13.1 11.5-16.0 G/DL Hematocrit 37 35-52 % Mean Corpuscular Volume 88 80-99 FL Mean Corpuscular Hemoglobin 31 25-34 PG Mean Corpuscular Hemoglobin Concent 35 32-36 G/DL Red Cell Distribution Width 13.1 10.0-14.5 % Platelet Count 138 130-400 10^3/uL Mean Platelet Volume 10.0 7.4-10.4 FL Neutrophils (%) (Auto) 63 42-75 % Lymphocytes (%) (Auto) 21 12-44 % Monocytes (%) (Auto) 16 H 0-12 % Eosinophils (%) (Auto) 0 0-10 % Basophils (%) (Auto) 1 0-10 % Neutrophils # (Auto) 1.9 1.8-7.8 X 10^3 Lymphocytes # (Auto) 0.6 L 1.0-4.0 X 10^3 Monocytes # (Auto) 0.5 0.0-1.0 X 10^3 Eosinophils # (Auto) 0.0 0.0-0.3 10^3/uL Basophils # (Auto) 0.0 0.0-0.1 10^3/uL Sodium Level 140 135-145 MMOL/L Potassium Level 3.8 3.6-5.0 MMOL/L Chloride Level 111 H 98-107 MMOL/L Carbon Dioxide Level 21 21-32 MMOL/L Anion Gap 8 5-14 MMOL/L Blood Urea Nitrogen 6 L 7-18 MG/DL Creatinine 0.73 0.60-1.30 MG/DL Estimat Glomerular Filtration Rate > 60 BUN/Creatinine Ratio 8 Glucose Level 107 H 70-105 MG/DL Calcium Level 10.0 8.5-10.1 MG/DL Corrected Calcium 8.5-10.1 MG/DL Total Bilirubin 1.4 H 0.1-1.0 MG/DL Aspartate Amino Transf (AST/SGOT) 21 5-34 U/L Alanine Aminotransferase (ALT/SGPT) 24 0-55 U/L Alkaline Phosphatase 78 40-136 U/L Total Protein 7.5 6.4-8.2 GM/DL Albumin 4.8 H 3.2-4.5 GM/DL Amylase Level 25 25-125 U/L Lipase 21 8-78 U/L My Orders Orders - MANOLO YEBOAH Ondansetron Injection (Zofran Injectio (12/13/18 11:15) Comprehensive Metabolic Panel (12/13/18 11:11) Lipase (12/13/18 11:11) Amylase (12/13/18 11:11) Saline Lock/Iv-Start (12/13/18 11:11) Cbc With Automated Diff (12/13/18 11:11) Medications Given in ED Current Medications Medications Dose Ordered Sig/David Route Start Time Stop Time Status Last Admin Dose Admin Ondansetron HCl 4 mg ONCE ONCE IVP 12/13/18 11:15 12/13/18 11:16 DC 12/13/18 11:28 4 MG Vital Signs/I&O 12/13/18 12/13/18 10:54 12:27 Temp 97.7 Pulse 107 75 Resp 18 18 B/P (MAP) 110/70 (83) 108/55 (72) Pulse Ox 99 98 O2 Delivery Room Air Blood Pressure Mean: 83 Progress Progress Note : Time: 12:10 Progress Note I have seen and evaluated the patient. Her nausea has resolved at this time. She was informed of her laboratory findings. She agrees with plan of care, plans for discharge, return precautions were given. Departure Impression Primary Impression: Urinary tract infection Disposition: 01 HOME, SELF-CARE Condition: Stable/Unchanged Departure-Patient Inst. Decision time for Depature: 12:18 Referrals: [facility] (PCP/Family) Primary Care Physician Patient Instructions: Urinary Tract Infection, Adult (DC) Add. Discharge Instructions: Take medication as directed. Drink plenty of clear fluids to stay hydrated and help flush out your urinary tract infection. Follow-up with your primary care provider within 1 week for recheck. Return back to the emergency room for worsening symptoms or concerns as needed. All discharge instructions reviewed with patient and/or family. Voiced understanding. Scripts Nitrofurantoin Monohyd/M-Cryst (Macrobid 100 mg Capsule) 100 Mg Capsule 1 TAB PO BID for 7 Days, #14 CAP Prov: MANOLO YEBOAH 4/8/19 Ondansetron HCl (Zofran) 4 Mg Tab 4 MG PO Q4H PRN for NAUSEA/VOMITING-1ST LINE, #14 TAB Prov: MANOLO YEBOAH 12/13/18 MANOLO YEBOAH Dec 13, 2018 11:39
[2018-12-13 11:46] LABS: ALANINE AMINOTRANSFERASE 24 U/L (0-55); ALBUMIN 4.8 GM/DL (3.2-4.5); ALKALINE PHOSPHATASE 78 U/L (40-136); AMYLASE 25 U/L (25-125); BILIRUBIN,TOTAL 1.4 MG/DL (0.1-1.0); BUN/CREATININE RATIO 8; CARBON DIOXIDE 21 MMOL/L (21-32); CHLORIDE 111 MMOL/L (98-107); CREATININE SERUM 0.73 MG/DL (0.60-1.30); GFR ESTIMATED > 60; GLUCOSE 107 MG/DL (70-105); LIPASE 21 U/L (8-78); POTASSIUM 3.8 MMOL/L (3.6-5.0); SODIUM 140 MMOL/L (135-145); TOTAL PROTEIN 7.5 GM/DL (6.4-8.2)
[2018-12-13] MEDS ORDERED: NITR-65 PO (12:20)
[2018-12-13] MEDS ORDERED: ONDN4T PO (12:20)
[2018-12-13 12:27] VITALS: BP 108/55
== END 2018-12-13 12:31 | disposition home or self-care (01) ==
LOC: ER 10:26 → EDUNIT# 10:26 → ER 12:31
DX: N39.0 Urinary tract infection, site not specified (principal); F41.9 Anxiety disorder, unspecified; F32.9 Major depressive disorder, single episode, unspecified; Z91.5 Personal history of self-harm; Z87.448 Personal history of other diseases of urinary system
CPT/HCPCS: 36415; 80053; 81000; 82150; 83690; 84703; 85025; 87077; 87088

== ENCOUNTER 2018-12-30 01:56 | Emergency (ER) | payer OTHER ==
[~2018-12-30] VITALS: Ht 162.6 cm; Wt 55.8 kg
[~2018-12-30 01:56] MED LIST changes: +NITR-65 PO
--- OUTSIDE RECORDS SUMMARY | 2018-12-30 02:02 | XMS REPORT | Continuity of Care Document ---
Author Organization Unknown Address Unknown Allergies There is no data. Medications There is no data. Problems There is no data. Procedures There is no data. Results There is no data. Encounters ACCT No. Visit Date/Time Discharge Status Pt. Type Provider Facility Loc./Unit Complaint [id number] 12/28/2018 13:00:00 ACT Outpatient [facility]
--- NOTE | 2018-12-30 02:21 | ED Abdominal Pain ---
General Stated Complaint: HOT & COLD FLASHES,NAUSEA FOR 5 DAYS Source of Information: Patient Exam Limitations: No Limitations History of Present Illness Date Seen by Provider: Dec 30, 2018 Time Seen by Provider: 02:03 Initial Comments Patient presents to ER by private conveyance with chief complaint of right flank and abdominal pain. In going on for about 4 days she's had decreased appetite but no nausea vomiting. She had occasional nonproductive cough. She's had some chills but does not own a thermometer. She denies dysuria, constipation , diarrhea. She does have a history of anxiety and depression with previous attempts or suicide/self-harm by overdosing on her pills and alcohol however today she has no suicidal ideation. She is getting short of breath and having a hard time sleeping so she decided to come in. She does not history of asthma, COPD and does not smoke cigarettes. She denies alcohol or drug use. She has no runny nose ears feeling underwater, sore throat or history of abdominal surgeries. Allergies and Home Medications Allergies Coded Allergies: No Known Drug Allergies (Unverified , 08/28/18) Home Medications Cephalexin 500 Mg Capsule, 500 MG PO BID Prescribed by: MANOLO YEBOAH on 09/24/181856 Nitrofurantoin Monohyd/M-Cryst 100 Mg Capsule, 1 TAB PO BID Prescribed by: MANOLO YEBOAH on 12/13/18 1220 Ondansetron 4 Mg Tab.rapdis, 4 MG PO Q6H PRN for NAUSEA/VOMITING Prescribed by: AISLINN VELA on 08/28/18 1019 Ondansetron HCl 4 Mg Tab, 4 MG PO Q4H PRN for NAUSEA/VOMITING-1ST LINE Prescribed by: MANOLO YEBOAH on 09/24/18 185 Ondansetron HCl 4 Mg Tab, 4 MG PO Q4H PRN for NAUSEA/VOMITING-1ST LINE Prescribed by: MANOLO YEBOAH on 12/13/18 1220 Phenazopyridine HCl 100 Mg Tablet, 100 MG PO TID Prescribed by: MANOLO YEBOAH on 09/24/18 185 Patient Home Medication List Home Medication List Reviewed: Yes Review of Systems Review of Systems Constitutional: chills; No diaphoresis; malaise EENTM: No Blurred Vision, No Double Vision, No Eye Tearing Respiratory: Cough, Shortness of Air; Denies Wheezing Cardiovascular: Denies Chest Pain, Denies Edema Gastrointestinal: Denies Constipated, Denies Diarrhea Genitourinary: Denies Burning, Denies Discharge, Denies Pain, Denies Urgency Musculoskeletal: No back pain, No joint pain Skin: No pruritus, No rash Past Bifmqpk-Kkqnlj-Nhzbjg Hx Patient Social History Alcohol Use: Denies Use Recreational Drug Use: No Smoking Status: Never a Smoker 2nd Hand Smoke Exposure: No Recent Foreign Travel: No Contact w/Someone Who Travel: No Recent Hopitalizations: No Immunizations Up To Date PED Vaccines UTD: Yes Seasonal Allergies Seasonal Allergies: No Past Medical History Surgeries: Yes (corrected left hip displasia ) Orthopedic Respiratory: No Cardiac: No Neurological: No Genitourinary: Yes Kidney Infection, UTI-Chronic Gastrointestinal: No Musculoskeletal: Yes (LEFT HIP DISPLASIA- CORRECTED) Endocrine: No HEENT: No Cancer: No Psychosocial: Yes (HOSPITALIZED FOR SUICIDE -04/24) Anxiety, Suicide Attempts, Depression Integumentary: No Family Medical History No Pertinent Family Hx Physical Exam Vital Signs Vital Signs - First Documented 12/30/18 02:07 Temp 97.1 Pulse 129 Resp 16 B/P (MAP) 125/84 (98) Pulse Ox 99 O2 Delivery Room Air Capillary Refill : Height/Weight/BMI Height: 5'4.00" Weight: 116lbs. oz. 52.146682bu; 14.06 BMI Method:Stated General Appearance: mild distress, thin HEENT: normal ENT inspection, TMs normal, pharynx normal Neck: non-tender, full range of motion, supple, normal inspection Respiratory: chest non-tender, lungs clear, normal breath sounds, no respiratory distress, no accessory muscle use Cardiovascular: normal peripheral pulses, regular rate, rhythm, no edema Peripheral Pulses: 2+ Radial Pulses (R), 2+ Radial Pulses (L) Gastrointestinal: normal bowel sounds, soft; No guarding, No rebound; tenderness (right flank but not involving McBurney's point.), other (negative for Cohen sign, psoas) Extremities: normal range of motion, non-tender, normal inspection, normal capillary refill Neurologic/Psychiatric: alert, normal mood/affect, oriented x 3 Progress/Results/Core Measures Results/Orders Lab Results Laboratory Tests Test 12/30/18 02:15 12/30/18 02:30 Range/Units White Blood Count 6.8 4.3-11.0 10^3/uL Red Blood Count 3.85 L 4.35-5.85 10^6/uL Hemoglobin 11.5 11.5-16.0 G/DL Hematocrit 33 L 35-52 % Mean Corpuscular Volume 87 80-99 FL Mean Corpuscular Hemoglobin 30 25-34 PG Mean Corpuscular Hemoglobin Concent 34 32-36 G/DL Red Cell Distribution Width 12.8 10.0-14.5 % Platelet Count 151 130-400 10^3/uL Mean Platelet Volume 9.6 7.4-10.4 FL Neutrophils (%) (Auto) 63 42-75 % Lymphocytes (%) (Auto) 24 12-44 % Monocytes (%) (Auto) 13 H 0-12 % Eosinophils (%) (Auto) 0 0-10 % Basophils (%) (Auto) 0 0-10 % Neutrophils # (Auto) 4.2 1.8-7.8 X 10^3 Lymphocytes # (Auto) 1.6 1.0-4.0 X 10^3 Monocytes # (Auto) 0.9 0.0-1.0 X 10^3 Eosinophils # (Auto) 0.0 0.0-0.3 10^3/uL Basophils # (Auto) 0.0 0.0-0.1 10^3/uL Sodium Level 138 135-145 MMOL/L Potassium Level 3.4 L 3.6-5.0 MMOL/L Chloride Level 106 98-107 MMOL/L Carbon Dioxide Level 19 L 21-32 MMOL/L Anion Gap 13 5-14 MMOL/L Blood Urea Nitrogen 11 7-18 MG/DL Creatinine 0.86 0.60-1.30 MG/DL Estimat Glomerular Filtration Rate > 60 BUN/Creatinine Ratio 13 Glucose Level 102 70-105 MG/DL Calcium Level 10.1 8.5-10.1 MG/DL Corrected Calcium 8.5-10.1 MG/DL Total Bilirubin 1.9 H 0.1-1.0 MG/DL Aspartate Amino Transf (AST/SGOT) 12 5-34 U/L Alanine Aminotransferase (ALT/SGPT) 15 0-55 U/L Alkaline Phosphatase 71 40-136 U/L C-Reactive Protein High Sensitivity 10.33 H 0.00-0.50 MG/DL Total Protein 8.4 H 6.4-8.2 GM/DL Albumin 4.7 H 3.2-4.5 GM/DL Urine Color YELLOW Urine Clarity VERY CLOUDY H Urine pH 6 5-9 Urine Specific [place] 1.015 L 1.016-1.022 Urine Protein 2+ H NEGATIVE Urine Glucose (UA) NEGATIVE NEGATIVE Urine Ketones 3+ H NEGATIVE Urine Nitrite POSITIVE H NEGATIVE Urine Bilirubin NEGATIVE NEGATIVE Urine Urobilinogen 4 H NORMAL MG/DL Urine Leukocyte Esterase 3+ H NEGATIVE Urine RBC (Auto) 3+ H NEGATIVE Urine RBC 2-5 H /HPF Urine WBC TNTC H /HPF Urine Squamous Epithelial Cells 2-5 /HPF Urine Crystals NONE /LPF Urine Bacteria LARGE H /HPF Urine Casts NONE /LPF Urine Mucus NEGATIVE /LPF Urine Culture Indicated YES Urine Opiates Screen NEGATIVE NEGATIVE Urine Oxycodone Screen NEGATIVE NEGATIVE Urine Methadone Screen NEGATIVE NEGATIVE Urine Propoxyphene Screen NEGATIVE NEGATIVE Urine Barbiturates Screen NEGATIVE NEGATIVE Ur Tricyclic Antidepressants Screen NEGATIVE NEGATIVE Urine Phencyclidine Screen NEGATIVE NEGATIVE Urine Amphetamines Screen NEGATIVE NEGATIVE Urine Methamphetamines Screen NEGATIVE NEGATIVE Urine Benzodiazepines Screen NEGATIVE NEGATIVE Urine Cocaine Screen NEGATIVE NEGATIVE Urine Cannabinoids Screen NEGATIVE NEGATIVE My Orders Orders - ACOSTA DAVILA Ua Culture If Indicated (12/30/18 01:59) Drug Screen Stat (Urine) (12/30/18 01:59) Urine Bedside (12/30/18 01:59) Cbc With Automated Diff (12/30/18 02:16) Comprehensive Metabolic Panel (12/30/18 02:16) Hs C Reactive Protein (12/30/18 02:16) Ketorolac Injection (Toradol Injection) (12/30/18 02:30) Ed Iv/Invasive Line Start (12/30/18 02:17) Lactated Ringers (Lr 1000 Ml Iv Solution (12/30/18 02:17) Urine Culture (12/30/18 02:30) Rocephin 1 Gm Iv (1x Dose) (12/30/18 03:00) Medications Given in ED Current Medications Medications Dose Ordered Sig/David Route Start Time Stop Time Status Last Admin Dose Admin Ketorolac Tromethamine 30 mg ONCE ONCE IVP 12/30/18 02:30 12/30/18 02:31 DC 12/30/18 02:22 30 MG Lactated Ringer's 1,000 ml @ 0 mls/hr Q0M ONCE IV 12/30/18 02:17 12/30/18 02:19 DC 12/30/18 02:22 0 MLS/HR Vital Signs/I&O 12/30/18 02:07 Temp 97.1 Pulse 129 Resp 16 B/P (MAP) 125/84 (98) Pulse Ox 99 O2 Delivery Room Air Departure Impression Primary Impression: UTI (urinary tract infection) Qualified Codes: N30.01 - Acute cystitis with hematuria Disposition: HOME, SELF-CARE Condition: Stable Departure-Patient Inst. Decision time for Depature: 03:01 Referrals: [facility] (PCP/Family) Primary Care Physician Patient Instructions: Urinary Tract Infection, Adult (DC) Add. Discharge Instructions: Take the Keflex one capsule twice a day to completion for the next 5 days. Drink plenty of water. Scripts Cephalexin (Cephalexin) 500 Mg Tablet 500 MG PO BID for 5 Days, #10 TAB 0 Refills Prov: ACSOTA DAVILA 12/30/18 ACOSTA DAVILA Dec 30, 2018 02:21
[2018-12-30] MEDS: KETOROLAC 30 MG/ML VIAL IVP ONE (02:22)
[2018-12-30] MEDS: LACTATED RINGERS 1,000 ML IV ONE (02:22)
[2018-12-30 02:30] LABS: BASOPHILS % (AUTO) 0 % (0-10); EOSINOPHILS % (AUTO) 0 % (0-10); HEMATOCRIT 33 % (35-52); HEMOGLOBIN 11.5 G/DL (11.5-16.0); LYMPHOCYTES # (AUTO) 1.6 X 10^3 (1.0-4.0); LYMPHOCYTES % (AUTO) 24 % (12-44); MEAN CORPUSCULAR HEMOGLOBIN 30 PG (25-34); MEAN CORPUSCULAR HGB CONC 34 G/DL (32-36); MEAN CORPUSCULAR VOLUME 87 FL (80-99); MEAN PLATELET VOLUME 9.6 FL (7.4-10.4); MONOCYTES # (AUTO) 0.9 X 10^3 (0.0-1.0); MONOCYTES % (AUTO) 13 % (0-12); NEUTROPHILS # (AUTO) 4.2 X 10^3 (1.8-7.8); NEUTROPHILS % (AUTO) 63 % (42-75); PLATELET COUNT 151 10^3/uL (130-400); RED CELL DISTRIBUTION WIDTH 12.8 % (10.0-14.5); WHITE BLOOD COUNT 6.8 10^3/uL (4.3-11.0)
[2018-12-30 02:38] LABS: BILIRUBIN,URINE NEGATIVE (NEGATIVE); CLARITY,URINE VERY CLOUDY; COLOR,URINE YELLOW; GLUCOSE, URINE (UA) NEGATIVE (NEGATIVE); KETONES,URINE 3+ (NEGATIVE); LEUKOCYTE ESTERASE ,URINE 3+ (NEGATIVE); NITRITE,URINE POSITIVE (NEGATIVE); PH,URINE 6 (5-9); PROTEIN,URINE 2+ (NEGATIVE); UROBILINOGEN,URINE 4 MG/DL (NORMAL)
[2018-12-30 02:51] LABS: ALANINE AMINOTRANSFERASE 15 U/L (0-55); ALBUMIN 4.7 GM/DL (3.2-4.5); ALKALINE PHOSPHATASE 71 U/L (40-136); BILIRUBIN,TOTAL 1.9 MG/DL (0.1-1.0); BUN/CREATININE RATIO 13; CALCIUM 10.1 MG/DL (8.5-10.1); CARBON DIOXIDE 19 MMOL/L (21-32); CHLORIDE 106 MMOL/L (98-107); CREATININE SERUM 0.86 MG/DL (0.60-1.30); GFR ESTIMATED > 60; GLUCOSE 102 MG/DL (70-105); POTASSIUM 3.4 MMOL/L (3.6-5.0); SODIUM 138 MMOL/L (135-145); TOTAL PROTEIN 8.4 GM/DL (6.4-8.2)
[2018-12-30 02:54] LABS: AMPHETAMINE SCREEN, URINE NEGATIVE (NEGATIVE); BACTERIA,URINE LARGE /HPF; BARBITURATE SCREEN URINE NEGATIVE (NEGATIVE); BENZODIAZEPINES SCREEN URINE NEGATIVE (NEGATIVE); CANNABINOID SCREEN, URINE NEGATIVE (NEGATIVE); COCAINE SCREEN URINE NEGATIVE (NEGATIVE); METHADONE STAT NEGATIVE (NEGATIVE); METHAMPHETAMINE SCREEN URINE S NEGATIVE (NEGATIVE); OPIATE SCREEN URINE NEGATIVE (NEGATIVE); OXYCODONE STAT NEGATIVE (NEGATIVE); PROPOXYPHENE STAT NEGATIVE (NEGATIVE); TRICYCLIC ANTIDEPRESSANTS SCRE NEGATIVE (NEGATIVE); WBC,URINE TNTC /HPF
[2018-12-30] MEDS ORDERED: CEPH500T PO (03:06)
[2018-12-30] MEDS: cefTRIAXone FOR IV USE 1,000 MG in WATER (STERILE) FOR INJECTION 10 ML IV ONE (03:07)
[2018-12-30 03:14] VITALS: BP 114/56
== END 2018-12-30 03:14 | disposition home or self-care (01) ==
LOC: EDUNIT# 01:56 → ER 01:59
DX: N39.0 Urinary tract infection, site not specified (principal); F41.9 Anxiety disorder, unspecified; F32.9 Major depressive disorder, single episode, unspecified; Z91.5 Personal history of self-harm; Z87.440 Personal history of urinary (tract) infections
CPT/HCPCS: 36415; 80053; 80306; 81000; 84703; 85025; 86141; 87077; 87088; 87186

== ENCOUNTER 2019-02-07 21:36 | Emergency (ER) | payer OTHER ==
[~2019-02-07] VITALS: Ht 162.6 cm; Wt 54.4 kg
[~2019-02-07 21:36] MED LIST changes: +CEPH500T PO
[2019-02-07] MEDS ORDERED: NS IV 1000 ML 1,000 ML IV SCH (22:02)
[2019-02-07 22:10] LABS: BASOPHILS % (AUTO) 0 % (0-10); EOSINOPHILS % (AUTO) 0 % (0-10); HEMATOCRIT 35 % (35-52); HEMOGLOBIN 11.8 G/DL (11.5-16.0); LYMPHOCYTES # (AUTO) 1.3 X 10^3 (1.0-4.0); LYMPHOCYTES % (AUTO) 15 % (12-44); MEAN CORPUSCULAR HEMOGLOBIN 30 PG (25-34); MEAN CORPUSCULAR HGB CONC 34 G/DL (32-36); MEAN CORPUSCULAR VOLUME 89 FL (80-99); MEAN PLATELET VOLUME 9.9 FL (7.4-10.4); MONOCYTES % (AUTO) 11 % (0-12); NEUTROPHILS # (AUTO) 6.3 X 10^3 (1.8-7.8); NEUTROPHILS % (AUTO) 74 % (42-75); PLATELET COUNT 159 10^3/uL (130-400); RED CELL DISTRIBUTION WIDTH 13.6 % (10.0-14.5); WHITE BLOOD COUNT 8.5 10^3/uL (4.3-11.0)
[2019-02-07] MEDS ORDERED: LACTATED RINGERS 1,000 ML IV ONE (22:11)
[2019-02-07] MEDS ORDERED: IBUPROFEN TABLET 200 MG TAB PO STA (22:11)
[2019-02-07 22:16] LABS: INR 1.1 (0.8-1.4); PROTHROMBIN TIME PATIENT 14.5 SEC (12.2-14.7)
[2019-02-07 22:21] LABS: ALANINE AMINOTRANSFERASE 12 U/L (0-55); ALBUMIN 4.7 GM/DL (3.2-4.5); ALKALINE PHOSPHATASE 78 U/L (40-136); BILIRUBIN,TOTAL 3.2 MG/DL (0.1-1.0); BUN/CREATININE RATIO 8; CALCIUM 9.8 MG/DL (8.5-10.1); CARBON DIOXIDE 17 MMOL/L (21-32); CHLORIDE 106 MMOL/L (98-107); CREATININE SERUM 0.83 MG/DL (0.60-1.30); GFR ESTIMATED > 60; GLUCOSE 98 MG/DL (70-105); POTASSIUM 3.7 MMOL/L (3.6-5.0); SODIUM 135 MMOL/L (135-145); TOTAL PROTEIN 7.7 GM/DL (6.4-8.2)
--- NOTE | 2019-02-07 22:21 | ED General ---
General Chief Complaint: Abdominal/GI Problems Stated Complaint: BACK PAIN,CHILLS,HEADACHE Nursing Triage Note: PT COMPLAINING OF LEFT FLANK PAIN THAT STARTED EARLY THIS MORNING AND HAS INCREASED OVER THE DAY. PT STATES SHE HAS HAD KIDNEY PROBLEMS IN THE PAST. Nursing Sepsis Screen: Possible Sepsis Risk Source of Information: Patient Exam Limitations: No Limitations History of Present Illness Date Seen by Provider: Feb 07, 2019 Time Seen by Provider: 22:05 Initial Comments Here with report of flank pain on the left as well as fever, chills, not feeling well, overall body aches and feeling like she has a urinary tract infection. Has had several urinary tract infections over the last 6 months which seemed to be Escherichia coli with some resistance noted. Denies nausea or vomiting. Did take Tylenol for fever 2 hours ago. Still has fever currently. Timing/Duration: 24 Hours Severity: Moderate Associated Systoms: No Chest Pain, No Cough; Fever/Chills; No Nausea/Vomiting, No Shortness of Air; Weakness Allergies and Home Medications Allergies Coded Allergies: No Known Drug Allergies (Unverified , 08/28/18) Home Medications Cephalexin 500 Mg Capsule, 500 MG PO BID Prescribed by: MANOLO YEBOAH on 09/24/181856 Cephalexin 500 Mg Tablet, 500 MG PO BID Prescribed by: ACOSTA DAVILA on 12/30/18 0306 Nitrofurantoin Monohyd/M-Cryst 100 Mg Capsule, 1 TAB PO BID Prescribed by: MANOLO YEBOAH on 12/13/18 1220 Ondansetron 4 Mg Tab.rapdis, 4 MG PO Q6H PRN for NAUSEA/VOMITING Prescribed by: AISLINN VELA on 08/28/18 1019 Ondansetron HCl 4 Mg Tab, 4 MG PO Q4H PRN for NAUSEA/VOMITING-1ST LINE Prescribed by: MANOLO YEBOAH on 09/24/18 1857 Ondansetron HCl 4 Mg Tab, 4 MG PO Q4H PRN for NAUSEA/VOMITING-1ST LINE Prescribed by: MANOLO YEBOAH on 12/13/18 1220 Phenazopyridine HCl 100 Mg Tablet, 100 MG PO TID Prescribed by: MANOLO YEBOAH on 09/24/18 185 Patient Home Medication List Home Medication List Reviewed: Yes Review of Systems Review of Systems Constitutional: see HPI, chills, fever EENTM: no symptoms reported Respiratory: No cough, No short of breath Cardiovascular: no symptoms reported Gastrointestinal: abdominal pain; No nausea, No vomiting Genitourinary: dysuria Musculoskeletal: joint pain, muscle pain Skin: no symptoms reported Psychiatric/Neurological: No Symptoms Reported All Other Systems Reviewed Negative Unless Noted: Yes Past Iljjdsw-Xgrsit-Ocuaqn Hx Past Med/Social Hx: Reviewed Nursing Past Med/Soc Hx Patient Social History Alcohol Use: Denies Use Recreational Drug Use: No Smoking Status: Never a Smoker 2nd Hand Smoke Exposure: No Recent Foreign Travel: No Contact w/Someone Who Travel: No Recent Infectious Disease Expo: No Recent Hopitalizations: No Immunizations Up To Date PED Vaccines UTD: Yes Seasonal Allergies Seasonal Allergies: No Past Medical History Surgeries: Yes (corrected left hip displasia ) Orthopedic Respiratory: No Cardiac: No Neurological: No Genitourinary: Yes Kidney Infection, UTI-Chronic Gastrointestinal: No Musculoskeletal: Yes (LEFT HIP DISPLASIA- CORRECTED) Endocrine: No HEENT: No Cancer: No Psychosocial: Yes (HOSPITALIZED FOR SUICIDE -04/24) Anxiety, Suicide Attempts, Depression Integumentary: No Blood Disorders: No Family Medical History Reviewed Nursing Family Hx No Pertinent Family Hx Physical Exam-Suspected Sepsis Physical Exam Vital Signs Vital Signs - First Documented 02/07/19 21:45 Temp 101.0 Pulse 138 Resp 20 B/P (MAP) 127/70 (89) Pulse Ox 96 O2 Delivery Room Air Capillary Refill : Less Than 3 Seconds Blood Pressure Mean: 89 Height, Weight, BMI Height: 5'4.00" Weight: 120lbs. oz. 54.531443dg; 14.06 BMI Method:Estimated General Appearance: No Apparent Distress, WD/WN HEENT: PERRL/EOMI, Pharynx Normal Neck: Non Tender, Supple Respiratory: Lungs Clear, Normal Breath Sounds Cardiovascular: No Murmur, Tachycardia Gastrointestinal: Non Tender, Soft Back: Normal Inspection, No Vertebral Tenderness, CVA Tenderness (L); No CVA Tenderness (R) Extremity: Normal Range of Motion, Non Tender Neurologic/Psychiatric: Alert, Oriented x3 Skin: normal color, warm/dry Focused Exam Lactate Level 02/07/19 22:05: Lactic Acid Level 0.62 Lactic Acid Level Laboratory Tests Test 02/07/19 22:05 Lactic Acid Level 0.62 MMOL/L (0.50-2.00) Progress/Results/Core Measures Suspected Sepsis Recent Fever Within 48 Hours: Yes Infection Criteria Present: Suspected New Infection New/Unexplained Altered Menta: No Sepsis Screen: Possible Sepsis Risk SIRS Temperature:101.0 Pulse: 138 Respiratory Rate: 20 Laboratory Tests 02/07/19 21:48: White Blood Count 8.5 Blood Pressure 127 /70 Mean: 89 02/07/19 22:05: Lactic Acid Level 0.62 Laboratory Tests 02/07/19 21:48: Creatinine 0.83, INR Comment 1.1, Platelet Count 159, Total Bilirubin 3.2H Results/Orders Lab Results Laboratory Tests Test 02/07/19 21:48 02/07/19 21:51 02/07/19 22:05 Range/Units White Blood Count 8.5 4.3-11.0 10^3/uL Red Blood Count 3.93 L 4.35-5.85 10^6/uL Hemoglobin 11.8 11.5-16.0 G/DL Hematocrit 35 35-52 % Mean Corpuscular Volume 89 80-99 FL Mean Corpuscular Hemoglobin 30 25-34 PG Mean Corpuscular Hemoglobin Concent 34 32-36 G/DL Red Cell Distribution Width 13.6 10.0-14.5 % Platelet Count 159 130-400 10^3/uL Mean Platelet Volume 9.9 7.4-10.4 FL Neutrophils (%) (Auto) 74 42-75 % Lymphocytes (%) (Auto) 15 12-44 % Monocytes (%) (Auto) 11 0-12 % Eosinophils (%) (Auto) 0 0-10 % Basophils (%) (Auto) 0 0-10 % Neutrophils # (Auto) 6.3 1.8-7.8 X 10^3 Lymphocytes # (Auto) 1.3 1.0-4.0 X 10^3 Monocytes # (Auto) 1.0 0.0-1.0 X 10^3 Eosinophils # (Auto) 0.0 0.0-0.3 10^3/uL Basophils # (Auto) 0.0 0.0-0.1 10^3/uL Prothrombin Time 14.5 12.2-14.7 SEC INR Comment 1.1 0.8-1.4 Activated Partial Thromboplast Time 32 24-35 SEC Sodium Level 135 135-145 MMOL/L Potassium Level 3.7 3.6-5.0 MMOL/L Chloride Level 106 98-107 MMOL/L Carbon Dioxide Level 17 L 21-32 MMOL/L Anion Gap 12 5-14 MMOL/L Blood Urea Nitrogen 7 7-18 MG/DL Creatinine 0.83 0.60-1.30 MG/DL Estimat Glomerular Filtration Rate > 60 BUN/Creatinine Ratio 8 Glucose Level 98 70-105 MG/DL Calcium Level 9.8 8.5-10.1 MG/DL Corrected Calcium 8.5-10.1 MG/DL Total Bilirubin 3.2 H 0.1-1.0 MG/DL Aspartate Amino Transf (AST/SGOT) 14 5-34 U/L Alanine Aminotransferase (ALT/SGPT) 12 0-55 U/L Alkaline Phosphatase 78 40-136 U/L Total Protein 7.7 6.4-8.2 GM/DL Albumin 4.7 H 3.2-4.5 GM/DL Urine Color YELLOW Urine Clarity SLIGHTLY CLOUDY Urine pH 6 5-9 Urine Specific [place] 1.010 L 1.016-1.022 Urine Protein 3+ H NEGATIVE Urine Glucose (UA) NEGATIVE NEGATIVE Urine Ketones 4+ H NEGATIVE Urine Nitrite POSITIVE H NEGATIVE Urine Bilirubin NEGATIVE NEGATIVE Urine Urobilinogen NORMAL NORMAL MG/DL Urine Leukocyte Esterase 3+ H NEGATIVE Urine RBC (Auto) 2+ H NEGATIVE Urine RBC NONE /HPF Urine WBC TNTC H /HPF Urine Squamous Epithelial Cells 5-10 /HPF Urine Crystals NONE /LPF Urine Bacteria LARGE H /HPF Urine Casts NONE /LPF Urine Mucus NEGATIVE /LPF Urine Culture Indicated CULTURE PENDING Lactic Acid Level 0.62 0.50-2.00 MMOL/L My Orders Orders - AISLINN VELA MD Cbc With Automated Diff (02/07/19 22:02) Comprehensive Metabolic Panel (02/07/19 22:02) Blood Culture (02/07/19 22:02) Sputum Culture (02/07/19 22:02) Urinalysis (02/07/19 22:02) Urine Culture (02/07/19 22:02) Protime With Inr (02/07/19 22:02) Partial Thromboplastin Time (02/07/19 22:02) Chest 1 View, Ap/Pa Only (02/07/19 22:02) Ed Iv/Invasive Line Start (02/07/19 22:02) Vital Signs Adult Sepsis Patie Q15M (02/07/19 22:02) O2 (02/07/19 22:02) Remove Rings In Anticipation O (02/07/19 22:02) Lactic Acid Analyzer (02/07/19 22:02) Ns Iv 1000 Ml (Sodium Chloride 0.9%) (02/07/19 22:02) Ibuprofen Tablet (Motrin Tablet) (02/07/19 22:11) Ed Iv/Invasive Line Start (02/07/19 22:11) Lactated Ringers (Lr 1000 Ml Iv Solution (02/07/19 22:11) Ceftriaxone For Iv Use (Rocephin For I (02/07/19 22:45) Ketorolac Injection (Toradol Injection) (02/07/19 23:07) Medications Given in ED Current Medications Medications Dose Ordered Sig/David Route Start Time Stop Time Status Last Admin Dose Admin Ceftriaxone Sodium 1000 mg/ Sterile Water 10 ml @ 200 mls/hr ONCE ONCE IV 02/07/19 22:45 02/07/19 22:47 DC 02/07/19 23:04 200 MLS/HR Lactated Ringer's 1,000 ml @ 0 mls/hr Q0M ONCE IV 02/07/19 22:11 02/07/19 22:13 DC 02/07/19 23:19 999 MLS/HR Vital Signs/I&O 02/07/19 02/07/19 21:45 23:53 Temp 101.0 99.6 Pulse 138 107 Resp 20 18 B/P (MAP) 127/70 (89) 108/63 (78) Pulse Ox 96 100 O2 Delivery Room Air Room Air 02/08/19 00:00 Intake Total 1010 ml Balance 1010 ml Capillary Refill : Less Than 3 Seconds Blood Pressure Mean: 89 Progress Note : Progress Note Seen and evaluated. IV, labs, UA, chest x-ray, blood cultures and lactic acid ordered. History reviewed and showed evidence multiple Escherichia coli infections over the last 6 months. Does have some resistance. Normal saline 1 L bolus followed by LR 1 L bolus. Rocephin 1 g IV ordered after blood cultures completed. Monitor patient. 0003: Overall feeling better. I did discuss with the patient about following up with both gynecology and nephrology to evaluate why she has these recurrent urinary tract infections. This seems to be problem over the last year and she was followed by nephrology in [place]. Since moving here August she has not established with nephrology yet but is in the process. Discharged home with return precautions. Patient verbalize understanding instructions and agreement with plan. Departure Impression Primary Impression: Urinary tract infection Qualified Codes: N30.00 - Acute cystitis without hematuria Disposition: HOME, SELF-CARE Condition: Improved Departure-Patient Inst. Decision time for Depature: 00:08 Referrals: [facility] (PCP) Primary Care Physician Patient Instructions: Urinary Tract Infection, Adult (DC) Add. Discharge Instructions: All discharge instructions reviewed with patient and/or family. Voiced understanding. Take medications as directed. You may take Tylenol/acetaminophen 650 mg every 6- 8 hours as needed for fever or pain. You may take ibuprofen 400 mg every 6-8 hours as needed for fever or pain. Drink plenty of fluids and I encourage her to drink plenty of water. It is important that he follow-up with a kidney doctor and social welfare clerk for further evaluation of your frequent urinary tract infections. [place], [place], has several diesel truck driver including Dr. Hamilton, who may have a clinic here in [place]. Return for worse pain, fever, vomiting, weakness, breathing problems or other concerns as needed. Scripts Cephalexin (Cephalexin) 500 Mg Tablet 500 MG PO BID, #14 TAB 0 Refills Prov: AISLINN VELA MD 02/08/19 Copy Copies To 1: ANA PAULA KNAPP TIMOTHY D MD Feb 07, 2019 22:21
[2019-02-07] MEDS ORDERED: cefTRIAXone FOR IV USE 1,000 MG in WATER (STERILE) FOR INJECTION 10 ML IV ONE (22:45)
[2019-02-07 22:49] LABS: BILIRUBIN,URINE NEGATIVE (NEGATIVE); CLARITY,URINE SLIGHTLY CLOUDY; COLOR,URINE YELLOW; GLUCOSE, URINE (UA) NEGATIVE (NEGATIVE); KETONES,URINE 4+ (NEGATIVE); LEUKOCYTE ESTERASE ,URINE 3+ (NEGATIVE); NITRITE,URINE POSITIVE (NEGATIVE); PH,URINE 6 (5-9); PROTEIN,URINE 3+ (NEGATIVE); UROBILINOGEN,URINE NORMAL (NORMAL)
[2019-02-07 22:56] LABS: BACTERIA,URINE LARGE /HPF; WBC,URINE TNTC /HPF
[2019-02-07] MEDS ORDERED: KETOROLAC 30 MG/ML VIAL IVP STA (23:07)
[2019-02-07 23:53] VITALS: BP 108/63
[2019-02-08] MEDS ORDERED: CEPH500T PO (00:11)
--- OUTSIDE RECORDS SUMMARY | 2019-02-08 00:13 | XMS REPORT ---
Author Author ANA PAULA KNAPP [facility] Address [address] [place] [address] Care Team Providers Care Ski Topper Name Role Phone ANA PAULA KNAPP Unavailable PROBLEMS Type Condition ICD9-CM Code DAY08-ZZ Code Onset Dates Condition Status SNOMED Code Problem Current severe episode of major depressive disorder without psychotic features without prior episode F32.2 Active 28937199 Problem Major depressive disorder, recurrent episode, severe F33.2 Active [id number] ALLERGIES No Information ENCOUNTERS Encounter Location Date Diagnosis [facility] [address] [address] Feb, [facility] [address] [address] January, [facility] [address] [address] January, Major depressive disorder, recurrent episode, severe F33.2 [facility] [id number] [place] [id number] Dec, [facility] [id number] [place] [id number] Dec, Generalized body aches R52 [facility] [address] [address] Dec, Major depressive disorder, recurrent episode, severe F33.2 [facility] [address] [address] Nov, Encounter for test Z32.00 [facility] [address] [address] Nov, [facility] [address] [place] [address] Oct, [facility] [address] [id number] [address] Oct, [facility] [address] [id number] [address] Oct, Current severe episode of major depressive disorder without psychotic features without prior episode F32.2 [facility] [address] [id number] [place] [address] Sep, IMMUNIZATIONS No Known Immunizations SOCIAL HISTORY Never Assessed REASON FOR VISIT blood test PLAN OF CARE VITAL SIGNS MEDICATIONS Unknown Medications RESULTS No Results PROCEDURES Procedure Date Ordered Result Body Site CHORIONIC GONADOTROPIN ASSAY November 12, 2018 INSTRUCTIONS MEDICATIONS ADMINISTERED No Known Medications MEDICAL (GENERAL) HISTORY Type Description Date Medical History Recurrent UTI's Medical History Depression/Anxiety/Suicidal Thoughts Surgical History hip surgery, dysplasia as a 1998 Hospitalization History Suicide Attempt x 3, Overdose Hospitalization History Hospitalization for self harm
--- OUTSIDE RECORDS SUMMARY | 2019-02-08 00:13 | XMS REPORT ---
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.2 Active 84871206 Problem Major depressive disorder, recurrent episode, severe F33.2 Active [id number] ALLERGIES No Information ENCOUNTERS Encounter Location Date Diagnosis [facility] [address] [address] Feb, [facility] [address] [address] January, [facility] [address] [address] January, Major depressive disorder, recurrent episode, severe F33.2 [facility] [id number] [place] [address] Dec, [facility] [id number] [place] [id number] Dec, Generalized body aches R52 [facility] [address] [address] Dec, Major depressive disorder, recurrent episode, severe F33.2 [facility] [address] [address] Nov, Encounter for test Z32.00 [facility] [address] [address] Nov, [facility] [address] [place] [address] Oct, [facility] [address] [facility] [id number] [address] Oct, [facility] [address] [facility] [id number] [address] Oct, Current severe episode of major depressive disorder without psychotic features without prior episode F32.2 [facility] [address] [facility] [id number] [address] Sep, IMMUNIZATIONS No Known Immunizations SOCIAL HISTORY Never Assessed REASON FOR VISIT PLAN OF CARE VITAL SIGNS MEDICATIONS Unknown Medications RESULTS No Results PROCEDURES No Known procedures INSTRUCTIONS MEDICATIONS ADMINISTERED No Known Medications MEDICAL (GENERAL) HISTORY Type Description Date Medical History Recurrent UTI's Medical History Depression/Anxiety/Suicidal Thoughts Surgical History hip surgery, dysplasia as a 1998 Hospitalization History Suicide Attempt x 3, Overdose Hospitalization History Hospitalization for self harm
--- OUTSIDE RECORDS SUMMARY | 2019-02-08 00:14 | XMS REPORT | Continuity of Care Document ---
Author Organization Unknown Address Unknown Allergies Active Description Code Type Severity Reaction Onset Reported/Identified Relationship to Patient Clinical Status Yes No Known Drug Allergies [id number] Drug Allergy Unknown N/A 08/28/2018 Medications There is no data. Problems Date Dx Coded Attending Type Code Diagnosis Diagnosed By 08/28/2018 AISLINN VELA MD, Ot F32.9 MAJOR DEPRESSIVE DISORDER, SINGLE EPISOD 08/28/2018 AISLINN VELA MD, Ot F41.9 ANXIETY DISORDER, UNSPECIFIED 08/28/2018 AISLINN VELA MD Ot R10.84 GENERALIZED ABDOMINAL PAIN 08/28/2018 AISLINN VELA MD Ot R11.2 NAUSEA WITH VOMITING, UNSPECIFIED 08/28/2018 AISLINN VEAL MD Ot Z87.440 PERSONAL HISTORY OF URINARY (TRACT) INFE 09/01/2018 AISLINN VELA MD Ot F32.9 MAJOR DEPRESSIVE DISORDER, SINGLE EPISOD 09/01/2018 AISLINN VELA MD Ot F41.9 ANXIETY DISORDER, UNSPECIFIED 09/01/2018 AISLINN VELA MD Ot R10.84 GENERALIZED ABDOMINAL PAIN 09/01/2018 AISLINN VELA MD Ot R11.2 NAUSEA WITH VOMITING, UNSPECIFIED 09/01/2018 AISLINN VELA MD Ot Z87.440 PERSONAL HISTORY OF URINARY (TRACT) INFE 09/27/2018 MANOLO YEBOAH Ot F32.9 MAJOR DEPRESSIVE DISORDER, SINGLE EPISOD 09/27/2018 BERNOTMANOLO Ot F41.9 ANXIETY DISORDER, UNSPECIFIED 09/27/2018 MANOLO YEBOAH Ot N39.0 URINARY TRACT INFECTION, SITE NOT SPECIF 09/27/2018 BERNOTDAWNIS Ot R10.30 LOWER ABDOMINAL PAIN, UNSPECIFIED 09/27/2018 BERNOTDAWNIS Ot Z87.440 PERSONAL HISTORY OF URINARY (TRACT) INFE 09/27/2018 BERNOT, MANOLO Ot Z87.448 PERSONAL HISTORY OF OTHER DISEASES OF UR 09/27/2018 BERNDAWN CEBALLOSIS Ot Z91.5 PERSONAL HISTORY OF SELF-HARM 10/02/2018 DAWN YEBOAHIS Ot F32.9 MAJOR DEPRESSIVE DISORDER, SINGLE EPISOD 10/02/2018 BERNDAWN CEBALLOSIS Ot F41.9 ANXIETY DISORDER, UNSPECIFIED 10/02/2018 BERNDAWN CEBALLOSIS Ot N39.0 URINARY TRACT INFECTION, SITE NOT SPECIF 10/02/2018 DAWN YEBOAHIS Ot R10.30 LOWER ABDOMINAL PAIN, UNSPECIFIED 10/02/2018 BERNTUCKER MANOLO Ot Z87.440 PERSONAL HISTORY OF URINARY (TRACT) INFE 10/02/2018 BERNTUCKER MANOLO Ot Z87.448 PERSONAL HISTORY OF OTHER DISEASES OF UR 10/02/2018 BERNTUCKER MANOLO Ot Z91.5 PERSONAL HISTORY OF SELF-HARM 12/15/2018 OBINNA MANOLO Ot F32.9 MAJOR DEPRESSIVE DISORDER, SINGLE EPISOD 12/15/2018 DAWN YEBOAHIS Ot F41.9 ANXIETY DISORDER, UNSPECIFIED 12/15/2018 DAWN YEBOAHIS Ot N39.0 URINARY TRACT INFECTION, SITE NOT SPECIF 12/15/2018 DAWN YEBOAHIS Ot R11.2 NAUSEA WITH VOMITING, UNSPECIFIED 12/15/2018 OBINNA MANOLO Ot Z87.448 PERSONAL HISTORY OF OTHER DISEASES OF UR 12/15/2018 OBINNA MANOLO Ot Z91.5 PERSONAL HISTORY OF SELF-HARM 01/01/2019 ACOSTA DAVILA MD Ot F32.9 MAJOR DEPRESSIVE DISORDER, SINGLE EPISOD 01/01/2019 ACOSTA DAVILA MD Ot F41.9 ANXIETY DISORDER, UNSPECIFIED 01/01/2019 ACOSTA DAVILA MD Ot N39.0 URINARY TRACT INFECTION, SITE NOT SPECIF 01/01/2019 ACOSTA DAVILA MD Ot R10.9 UNSPECIFIED ABDOMINAL PAIN 01/01/2019 ACOSTA DAVILA MD Ot Z87.440 PERSONAL HISTORY OF URINARY (TRACT) INFE 01/01/2019 ACOSTA DAVILA MD Ot Z91.5 PERSONAL HISTORY OF SELF-HARM Procedures There is no data. Results Test Result Range Complete urinalysis with reflex to culture - 08/28/18 06:36 Urine color determination YELLOW NRG Urine clarity determination CLEAR NRG Urine pH measurement by test strip 7 5-9 Specific gravity of urine by test strip 1.010 1.016-1.022 Urine protein assay by test strip, semi-quantitative 1+ NEGATIVE Urine glucose detection by automated test strip NEGATIVE NEGATIVE Erythrocytes detection in urine sediment by light microscopy NEGATIVE NEGATIVE Urine ketones detection by automated test strip NEGATIVE NEGATIVE Urine nitrite detection by test strip NEGATIVE NEGATIVE Urine total bilirubin detection by test strip NEGATIVE NEGATIVE Urine urobilinogen measurement by automated test strip (mass/volume) NORMAL NORMAL Urine leukocyte esterase detection by dipstick 2+ NEGATIVE Automated urine sediment erythrocyte count by microscopy (number/high power field) NONE NRG Automated urine sediment leukocyte count by microscopy (number/high power field) [HPF] NRG Bacteria detection in urine sediment by light microscopy NEGATIVE NRG Squamous epithelial cells detection in urine sediment by light microscopy 10-25 NRG Crystals detection in urine sediment by light microscopy NONE NRG Casts detection in urine sediment by light microscopy NONE NRG Mucus detection in urine sediment by light microscopy NEGATIVE NRG Complete urinalysis with reflex to culture YES NRG RBC casts detection in urine sediment by light microscopy RARE NRG Bacterial urine culture - 08/28/18 06:36 Bacterial urine culture SEE REPORT NRG COLONY COUNT . NRG Complete blood count (CBC) with automated white blood cell (WBC) differential - 08/28/18 06:47 Blood leukocytes automated count (number/volume) 5.4 10*3/uL 4.3-11.0 Blood erythrocytes automated count (number/volume) 4.05 10*6/uL 4.35-5.85 Venous blood hemoglobin measurement (mass/volume) 12.3 g/dL 11.5-16.0 Blood hematocrit (volume fraction) 36 % 35-52 Automated erythrocyte mean corpuscular volume 88 [foz_us] 80-99 Automated erythrocyte mean corpuscular hemoglobin (mass per erythrocyte) 30 pg 25-34 Automated erythrocyte mean corpuscular hemoglobin concentration measurement (mass/volume) 35 g/dL 32-36 Automated erythrocyte distribution width ratio 12.9 % 10.0- 14.5 Automated blood platelet count (count/volume) 188 10*3/uL 130-400 Automated blood platelet mean volume measurement 9.8 [foz_us] 7.4-10.4 Automated blood neutrophils/100 leukocytes 65 % 42-75 Automated blood lymphocytes/100 leukocytes 24 % 12-44 Blood monocytes/100 leukocytes 9 % 0-12 Automated blood eosinophils/100 leukocytes 1 % 0-10 Automated blood basophils/100 leukocytes 0 % 0-10 Blood neutrophils automated count (number/volume) 3.6 10*3 1.8-7.8 Blood lymphocytes automated count (number/volume) 1.3 10*3 1.0-4.0 Blood monocytes automated count (number/volume) 0.5 10*3 0.0- 1.0 Automated eosinophil count 0.0 10*3/uL 0.0-0.3 Automated blood basophil count (count/volume) 0.0 10*3/uL 0.0-0.1 Comprehensive metabolic panel - 08/28/18 06:47 Serum or plasma sodium measurement (moles/volume) 140 mmol/L 135-145 Serum or plasma potassium measurement (moles/volume) 3.8 mmol/L 3.6-5.0 Serum or plasma chloride measurement (moles/volume) 112 mmol/L 98-107 Carbon dioxide 18 mmol/L 21-32 Serum or plasma anion gap determination (moles/volume) 10 mmol/L 5-14 Serum or plasma urea nitrogen measurement (mass/volume) 10 mg/dL 7-18 Serum or plasma creatinine measurement (mass/volume) 0.82 mg/dL 0.60-1.30 Serum or plasma urea nitrogen/creatinine mass ratio 12 NRG Serum or plasma creatinine measurement with calculation of estimated glomerular filtration rate > NRG Serum or plasma glucose measurement (mass/volume) 131 mg/dL 70-105 Serum or plasma calcium measurement (mass/volume) 9.4 mg/dL 8.5-10.1 Serum or plasma total bilirubin measurement (mass/volume) 1.2 mg/dL 0.1-1.0 Serum or plasma alkaline phosphatase measurement (enzymatic activity/volume) 82 U/L 40-136 Serum or plasma aspartate aminotransferase measurement (enzymatic activity/volume) 15 U/L 5-34 Serum or plasma alanine aminotransferase measurement (enzymatic activity/volume) 13 U/L 0-55 Serum or plasma protein measurement (mass/volume) 8.1 g/dL 6.4-8.2 Serum or plasma albumin measurement (mass/volume) 4.8 g/dL 3.2-4.5 Magnesium - 08/28/18 06:47 Magnesium 2.1 mg/dL 1.8-2.4 Lipase - 08/28/18 06:47 Lipase 33 U/L 8-78 Serum or plasma C reactive protein measurement (mass/volume) - 08/28/18 06:47 Serum or plasma C reactive protein measurement (mass/volume) 0.62 mg/dL 0.00-0.50 Complete blood count (CBC) with automated white blood cell (WBC) differential - 09/24/18 17:10 Blood leukocytes automated count (number/volume) 7.6 10*3/uL 4.3-11.0 Blood erythrocytes automated count (number/volume) 4.60 10*6/uL 4.35-5.85 Venous blood hemoglobin measurement (mass/volume) 14.1 g/dL 11.5-16.0 Blood hematocrit (volume fraction) 40 % 35-52 Automated erythrocyte mean corpuscular volume 87 [foz_us] 80-99 Automated erythrocyte mean corpuscular hemoglobin (mass per erythrocyte) 31 pg 25-34 Automated erythrocyte mean corpuscular hemoglobin concentration measurement (mass/volume) 35 g/dL 32-36 Automated erythrocyte distribution width ratio 12.9 % 10.0- 14.5 Automated blood platelet count (count/volume) 180 10*3/uL 130-400 Automated blood platelet mean volume measurement 9.8 [foz_us] 7.4-10.4 Automated blood neutrophils/100 leukocytes 86 % 42-75 Automated blood lymphocytes/100 leukocytes 8 % 12-44 Blood monocytes/100 leukocytes 6 % 0-12 Automated blood eosinophils/100 leukocytes 0 % 0-10 Automated blood basophils/100 leukocytes 0 % 0-10 Blood neutrophils automated count (number/volume) 6.5 10*3 1.8-7.8 Blood lymphocytes automated count (number/volume) 0.6 10*3 1.0-4.0 Blood monocytes automated count (number/volume) 0.4 10*3 0.0- 1.0 Automated eosinophil count 0.0 10*3/uL 0.0-0.3 Automated blood basophil count (count/volume) 0.0 10*3/uL 0.0-0.1 Comprehensive metabolic panel - 09/24/18 17:10 Serum or plasma sodium measurement (moles/volume) 141 mmol/L 135-145 Serum or plasma potassium measurement (moles/volume) 3.8 mmol/L 3.6-5.0 Serum or plasma chloride measurement (moles/volume) 109 mmol/L 98-107 Carbon dioxide 21 mmol/L 21-32 Serum or plasma anion gap determination (moles/volume) 11 mmol/L 5-14 Serum or plasma urea nitrogen measurement (mass/volume) 13 mg/dL 7-18 Serum or plasma creatinine measurement (mass/volume) 0.78 mg/dL 0.60-1.30 Serum or plasma urea nitrogen/creatinine mass ratio 17 NRG Serum or plasma creatinine measurement with calculation of estimated glomerular filtration rate > NRG Serum or plasma glucose measurement (mass/volume) 105 mg/dL 70-105 Serum or plasma calcium measurement (mass/volume) 9.7 mg/dL 8.5-10.1 Serum or plasma total bilirubin measurement (mass/volume) 2.1 mg/dL 0.1-1.0 Serum or plasma alkaline phosphatase measurement (enzymatic activity/volume) 84 U/L 40-136 Serum or plasma aspartate aminotransferase measurement (enzymatic activity/volume) 14 U/L 5-34 Serum or plasma alanine aminotransferase measurement (enzymatic activity/volume) 11 U/L 0-55 Serum or plasma protein measurement (mass/volume) 8.4 g/dL 6.4-8.2 Serum or plasma albumin measurement (mass/volume) 5.1 g/dL 3.2-4.5 Serum or plasma amylase measurement (enzymatic activity/volume) - 09/24/18 17:10 Serum or plasma amylase measurement (enzymatic activity/volume) 34 U/L 25-125 Lipase - 09/24/18 17:10 Lipase 25 U/L 8-78 Blood manual differential performed detection - 09/24/18 17:10 Blood monocytes/100 leukocytes 3 % NRG Manual blood segmented neutrophils/100 leukocytes 78 % NRG Blood band neutrophils/100 leukocytes 8 % NRG Manual blood lymphocytes/100 leukocytes 11 % NRG Manual eosinophils/100 leukocytes in nose 0 % NRG Manual blood basophils/100 leukocytes 0 % NRG Blood erythrocyte morphology finding identification NORMAL NRG Serum or plasma choriogonadotropin ( test) detection - 09/24/18 17:10 Serum or plasma choriogonadotropin ( test) detection NEGATIVE NEGATIVE Complete urinalysis with reflex to culture - 09/24/18 18:02 Urine color determination YELLOW NRG Urine clarity determination SLIGHTLY CLOUDY NRG Urine pH measurement by test strip 5 5-9 Specific gravity of urine by test strip 1.015 1.016-1.022 Urine protein assay by test strip, semi-quantitative 1+ NEGATIVE Urine glucose detection by automated test strip NEGATIVE NEGATIVE Erythrocytes detection in urine sediment by light microscopy 3+ NEGATIVE Urine ketones detection by automated test strip NEGATIVE NEGATIVE Urine nitrite detection by test strip POSITIVE NEGATIVE Urine total bilirubin detection by test strip NEGATIVE NEGATIVE Urine urobilinogen measurement by automated test strip (mass/volume) NORMAL NORMAL Urine leukocyte esterase detection by dipstick 2+ NEGATIVE Automated urine sediment erythrocyte count by microscopy (number/high power field) RARE NRG Automated urine sediment leukocyte count by microscopy (number/high power field) [HPF] NRG Bacteria detection in urine sediment by light microscopy LARGE NRG Squamous epithelial cells detection in urine sediment by light microscopy 5-10 NRG Crystals detection in urine sediment by light microscopy NONE NRG Casts detection in urine sediment by light microscopy NONE NRG Mucus detection in urine sediment by light microscopy NEGATIVE NRG Complete urinalysis with reflex to culture YES NRG Bacterial urine culture - 09/24/18 18:02 Bacterial urine culture [id number] NRG COLONY COUNT >100,000/ML NRG FTX;REPORTABLE RML SENT ID AND SENSITIVITY REPORT NRG FREE TEXT ENTRY 2 09/25 12:05 NRG FREE TEXT ENTRY 3 RML SENT PRELIM REPORT 09/25 17:06 NRG RML Sensitivity Panel - 09/24/18 18:02 Gentamicin susceptibility test by minimum inhibitory concentration <= NRG Trimethoprim/sulfamethoxazole susceptibility test by minimum inhibitoryconcentration <= NRG Levofloxacin susceptibility test by minimum inhibitory concentration <= NRG Ampicillin susceptibility test by minimum inhibitory concentration <= NRG Cefazolin susceptibility test by minimum inhibitory concentration <= NRG Ceftriaxone susceptibility test by minimum inhibitory concentration <= NRG Ciprofloxacin susceptibility test by minimum inhibitory concentration <= NRG Meropenem susceptibility test by minimum inhibitory concentration <= NRG Nitrofurantoin susceptibility test by minimum inhibitory concentration <= NRG Amoxicillin and clavulanate potassium susc BRAEDEN <= NRG Complete urinalysis with reflex to culture - 10/26/18 09:39 Urine color determination YELLOW NRG Urine clarity determination SLIGHTLY CLOUDY NRG Urine pH measurement by test strip 7 5-9 Specific gravity of urine by test strip 1.010 1.016-1.022 Urine protein assay by test strip, semi-quantitative 2+ NEGATIVE Urine glucose detection by automated test strip NEGATIVE NEGATIVE Erythrocytes detection in urine sediment by light microscopy NEGATIVE NEGATIVE Urine ketones detection by automated test strip NEGATIVE NEGATIVE Urine nitrite detection by test strip NEGATIVE NEGATIVE Urine total bilirubin detection by test strip NEGATIVE NEGATIVE Urine urobilinogen measurement by automated test strip (mass/volume) NORMAL NORMAL Urine leukocyte esterase detection by dipstick 1+ NEGATIVE Automated urine sediment erythrocyte count by microscopy (number/high power field) RARE NRG Automated urine sediment leukocyte count by microscopy (number/high power field) [HPF] NRG Bacteria detection in urine sediment by light microscopy FEW NRG Squamous epithelial cells detection in urine sediment by light microscopy 10-25 NRG Crystals detection in urine sediment by light microscopy NONE NRG Casts detection in urine sediment by light microscopy NONE NRG Mucus detection in urine sediment by light microscopy SMALL NRG Complete urinalysis with reflex to culture YES NRG Urine drug screening test - 10/26/18 09:39 Urine phencyclidine detection by screening method NEGATIVE NEGATIVE Urine benzodiazepines detection by screening method NEGATIVE NEGATIVE Urine cocaine detection NEGATIVE NEGATIVE Urine amphetamines detection by screening method NEGATIVE NEGATIVE Urine methamphetamine detection by screening method NEGATIVE NEGATIVE Urine cannabinoids detection by screening method POSITIVE NEGATIVE Urine opiates detection by screening method NEGATIVE NEGATIVE Urine barbiturates detection NEGATIVE NEGATIVE Screening urine tricyclic antidepressants detection NEGATIVE NEGATIVE Urine methadone detection by screening method NEGATIVE NEGATIVE Urine oxycodone detection NEGATIVE NEGATIVE Urine propoxyphene detection NEGATIVE NEGATIVE Bacterial urine culture - 10/26/18 09:39 Bacterial urine culture SEE REPORT NRG COLONY COUNT . NRG Complete blood count (CBC) with automated white blood cell (WBC) differential - 10/26/18 10:01 Blood leukocytes automated count (number/volume) 7.9 10*3/uL 4.3-11.0 Blood erythrocytes automated count (number/volume) 4.22 10*6/uL 4.35-5.85 Venous blood hemoglobin measurement (mass/volume) 12.8 g/dL 11.5-16.0 Blood hematocrit (volume fraction) 37 % 35-52 Automated erythrocyte mean corpuscular volume 87 [foz_us] 80-99 Automated erythrocyte mean corpuscular hemoglobin (mass per erythrocyte) 30 pg 25-34 Automated erythrocyte mean corpuscular hemoglobin concentration measurement (mass/volume) 35 g/dL 32-36 Automated erythrocyte distribution width ratio 12.8 % 10.0- 14.5 Automated blood platelet count (count/volume) 166 10*3/uL 130-400 Automated blood platelet mean volume measurement 9.9 [foz_us] 7.4-10.4 Automated blood neutrophils/100 leukocytes 76 % 42-75 Automated blood lymphocytes/100 leukocytes 17 % 12-44 Blood monocytes/100 leukocytes 7 % 0-12 Automated blood eosinophils/100 leukocytes 0 % 0-10 Automated blood basophils/100 leukocytes 0 % 0-10 Blood neutrophils automated count (number/volume) 6.0 10*3 1.8-7.8 Blood lymphocytes automated count (number/volume) 1.3 10*3 1.0-4.0 Blood monocytes automated count (number/volume) 0.6 10*3 0.0- 1.0 Automated eosinophil count 0.0 10*3/uL 0.0-0.3 Automated blood basophil count (count/volume) 0.0 10*3/uL 0.0-0.1 Comprehensive metabolic panel - 10/26/18 10:01 Serum or plasma sodium measurement (moles/volume) 139 mmol/L 135-145 Serum or plasma potassium measurement (moles/volume) 3.6 mmol/L 3.6-5.0 Serum or plasma chloride measurement (moles/volume) 107 mmol/L 98-107 Carbon dioxide 19 mmol/L 21-32 Serum or plasma anion gap determination (moles/volume) 13 mmol/L 5-14 Serum or plasma urea nitrogen measurement (mass/volume) 10 mg/dL 7-18 Serum or plasma creatinine measurement (mass/volume) 0.78 mg/dL 0.60-1.30 Serum or plasma urea nitrogen/creatinine mass ratio 13 NRG Serum or plasma creatinine measurement with calculation of estimated glomerular filtration rate > NRG Serum or plasma glucose measurement (mass/volume) 109 mg/dL 70-105 Serum or plasma calcium measurement (mass/volume) 10.2 mg/dL 8.5-10.1 Serum or plasma total bilirubin measurement (mass/volume) 1.2 mg/dL 0.1-1.0 Serum or plasma alkaline phosphatase measurement (enzymatic activity/volume) 81 U/L 40-136 Serum or plasma aspartate aminotransferase measurement (enzymatic activity/volume) 22 U/L 5-34 Serum or plasma alanine aminotransferase measurement (enzymatic activity/volume) 14 U/L 0-55 Serum or plasma protein measurement (mass/volume) 8.0 g/dL 6.4-8.2 Serum or plasma albumin measurement (mass/volume) 4.9 g/dL 3.2-4.5 Complete urinalysis with reflex to culture - 12/13/18 11:04 Urine color determination YELLOW NRG Urine clarity determination SLIGHTLY CLOUDY NRG Urine pH measurement by test strip 6 5-9 Specific gravity of urine by test strip 1.010 1.016-1.022 Urine protein assay by test strip, semi-quantitative 1+ NEGATIVE Urine glucose detection by automated test strip NEGATIVE NEGATIVE Erythrocytes detection in urine sediment by light microscopy 5+ NEGATIVE Urine ketones detection by automated test strip 1+ NEGATIVE Urine nitrite detection by test strip POSITIVE NEGATIVE Urine total bilirubin detection by test strip NEGATIVE NEGATIVE Urine urobilinogen measurement by automated test strip (mass/volume) NORMAL NORMAL Urine leukocyte esterase detection by dipstick 3+ NEGATIVE Automated urine sediment erythrocyte count by microscopy (number/high power field) [HPF] NRG Automated urine sediment leukocyte count by microscopy (number/high power field) [HPF] NRG Bacteria detection in urine sediment by light microscopy LARGE NRG Squamous epithelial cells detection in urine sediment by light microscopy 25-50 NRG Crystals detection in urine sediment by light microscopy NONE NRG Casts detection in urine sediment by light microscopy NONE NRG Mucus detection in urine sediment by light microscopy NEGATIVE NRG Complete urinalysis with reflex to culture YES NRG Bacterial urine culture - 12/13/18 11:04 Bacterial urine culture [id number] NRG COLONY COUNT >100,000/ML NRG FTX;REPORTABLE NO FURTHER TESTING NRG Complete blood count (CBC) with automated white blood cell (WBC) differential - 12/13/18 11:21 Blood leukocytes automated count (number/volume) 3.0 10*3/uL 4.3-11.0 Blood erythrocytes automated count (number/volume) 4.23 10*6/uL 4.35-5.85 Venous blood hemoglobin measurement (mass/volume) 13.1 g/dL 11.5-16.0 Blood hematocrit (volume fraction) 37 % 35-52 Automated erythrocyte mean corpuscular volume 88 [foz_us] 80-99 Automated erythrocyte mean corpuscular hemoglobin (mass per erythrocyte) 31 pg 25-34 Automated erythrocyte mean corpuscular hemoglobin concentration measurement (mass/volume) 35 g/dL 32-36 Automated erythrocyte distribution width ratio 13.1 % 10.0- 14.5 Automated blood platelet count (count/volume) 138 10*3/uL 130-400 Automated blood platelet mean volume measurement 10.0 [foz_us] 7.4-10.4 Automated blood neutrophils/100 leukocytes 63 % 42-75 Automated blood lymphocytes/100 leukocytes 21 % 12-44 Blood monocytes/100 leukocytes 16 % 0-12 Automated blood eosinophils/100 leukocytes 0 % 0-10 Automated blood basophils/100 leukocytes 1 % 0-10 Blood neutrophils automated count (number/volume) 1.9 10*3 1.8-7.8 Blood lymphocytes automated count (number/volume) 0.6 10*3 1.0-4.0 Blood monocytes automated count (number/volume) 0.5 10*3 0.0- 1.0 Automated eosinophil count 0.0 10*3/uL 0.0-0.3 Automated blood basophil count (count/volume) 0.0 10*3/uL 0.0-0.1 Comprehensive metabolic panel - 12/13/18 11:21 Serum or plasma sodium measurement (moles/volume) 140 mmol/L 135-145 Serum or plasma potassium measurement (moles/volume) 3.8 mmol/L 3.6-5.0 Serum or plasma chloride measurement (moles/volume) 111 mmol/L 98-107 Carbon dioxide 21 mmol/L 21-32 Serum or plasma anion gap determination (moles/volume) 8 mmol/L 5-14 Serum or plasma urea nitrogen measurement (mass/volume) 6 mg/dL 7-18 Serum or plasma creatinine measurement (mass/volume) 0.73 mg/dL 0.60-1.30 Serum or plasma urea nitrogen/creatinine mass ratio 8 NRG Serum or plasma creatinine measurement with calculation of estimated glomerular filtration rate > NRG Serum or plasma glucose measurement (mass/volume) 107 mg/dL 70-105 Serum or plasma calcium measurement (mass/volume) 10.0 mg/dL 8.5-10.1 Serum or plasma total bilirubin measurement (mass/volume) 1.4 mg/dL 0.1-1.0 Serum or plasma alkaline phosphatase measurement (enzymatic activity/volume) 78 U/L 40-136 Serum or plasma aspartate aminotransferase measurement (enzymatic activity/volume) 21 U/L 5-34 Serum or plasma alanine aminotransferase measurement (enzymatic activity/volume) 24 U/L 0-55 Serum or plasma protein measurement (mass/volume) 7.5 g/dL 6.4-8.2 Serum or plasma albumin measurement (mass/volume) 4.8 g/dL 3.2-4.5 Serum or plasma amylase measurement (enzymatic activity/volume) - 12/13/18 11:21 Serum or plasma amylase measurement (enzymatic activity/volume) 25 U/L 25-125 Lipase - 12/13/18 11:21 Lipase 21 U/L 8-78 CBC w/MANUAL DIFF - 12/27/18 17:07 WHITE BLOOD CELL COUNT 10.0 Thousand/uL 3.8-10.8 RED BLOOD CELL COUNT 3.98 Million/uL 3.80-5.10 HEMOGLOBIN 12.1 g/dL 11.7-15.5 HEMATOCRIT 35.3 % 35.0-45.0 MCV 88.7 fL 80.0-100.0 MCH 30.4 pg 27.0-33.0 MCHC 34.3 g/dL 32.0-36.0 RDW 12.9 % 11.0-15.0 PLATELET COUNT 175 Thousand/uL 140-400 MPV 10.5 fL 7.5-12.5 Complete blood count (CBC) with automated white blood cell (WBC) differential - 12/30/18 02:15 Blood leukocytes automated count (number/volume) 6.8 10*3/uL 4.3-11.0 Blood erythrocytes automated count (number/volume) 3.85 10*6/uL 4.35-5.85 Venous blood hemoglobin measurement (mass/volume) 11.5 g/dL 11.5-16.0 Blood hematocrit (volume fraction) 33 % 35-52 Automated erythrocyte mean corpuscular volume 87 [foz_us] 80-99 Automated erythrocyte mean corpuscular hemoglobin (mass per erythrocyte) 30 pg 25-34 Automated erythrocyte mean corpuscular hemoglobin concentration measurement (mass/volume) 34 g/dL 32-36 Automated erythrocyte distribution width ratio 12.8 % 10.0- 14.5 Automated blood platelet count (count/volume) 151 10*3/uL 130-400 Automated blood platelet mean volume measurement 9.6 [foz_us] 7.4-10.4 Automated blood neutrophils/100 leukocytes 63 % 42-75 Automated blood lymphocytes/100 leukocytes 24 % 12-44 Blood monocytes/100 leukocytes 13 % 0-12 Automated blood eosinophils/100 leukocytes 0 % 0-10 Automated blood basophils/100 leukocytes 0 % 0-10 Blood neutrophils automated count (number/volume) 4.2 10*3 1.8-7.8 Blood lymphocytes automated count (number/volume) 1.6 10*3 1.0-4.0 Blood monocytes automated count (number/volume) 0.9 10*3 0.0- 1.0 Automated eosinophil count 0.0 10*3/uL 0.0-0.3 Automated blood basophil count (count/volume) 0.0 10*3/uL 0.0-0.1 Comprehensive metabolic panel - 12/30/18 02:15 Serum or plasma sodium measurement (moles/volume) 138 mmol/L 135-145 Serum or plasma potassium measurement (moles/volume) 3.4 mmol/L 3.6-5.0 Serum or plasma chloride measurement (moles/volume) 106 mmol/L 98-107 Carbon dioxide 19 mmol/L 21-32 Serum or plasma anion gap determination (moles/volume) 13 mmol/L 5-14 Serum or plasma urea nitrogen measurement (mass/volume) 11 mg/dL 7-18 Serum or plasma creatinine measurement (mass/volume) 0.86 mg/dL 0.60-1.30 Serum or plasma urea nitrogen/creatinine mass ratio 13 NRG Serum or plasma creatinine measurement with calculation of estimated glomerular filtration rate > NRG Serum or plasma glucose measurement (mass/volume) 102 mg/dL 70-105 Serum or plasma calcium measurement (mass/volume) 10.1 mg/dL 8.5-10.1 Serum or plasma total bilirubin measurement (mass/volume) 1.9 mg/dL 0.1-1.0 Serum or plasma alkaline phosphatase measurement (enzymatic activity/volume) 71 U/L 40-136 Serum or plasma aspartate aminotransferase measurement (enzymatic activity/volume) 12 U/L 5-34 Serum or plasma alanine aminotransferase measurement (enzymatic activity/volume) 15 U/L 0-55 Serum or plasma protein measurement (mass/volume) 8.4 g/dL 6.4-8.2 Serum or plasma albumin measurement (mass/volume) 4.7 g/dL 3.2-4.5 Serum or plasma C reactive protein measurement (mass/volume) - 12/30/18 02:15 Serum or plasma C reactive protein measurement (mass/volume) 10.33 mg/dL 0.00-0.50 Complete urinalysis with reflex to culture - 12/30/18 02:30 Urine color determination YELLOW NRG Urine clarity determination VERY CLOUDY NRG Urine pH measurement by test strip 6 5-9 Specific gravity of urine by test strip 1.015 1.016-1.022 Urine protein assay by test strip, semi-quantitative 2+ NEGATIVE Urine glucose detection by automated test strip NEGATIVE NEGATIVE Erythrocytes detection in urine sediment by light microscopy 3+ NEGATIVE Urine ketones detection by automated test strip 3+ NEGATIVE Urine nitrite detection by test strip POSITIVE NEGATIVE Urine total bilirubin detection by test strip NEGATIVE NEGATIVE Urine urobilinogen measurement by automated test strip (mass/volume) 4 mg/dL NORMAL Urine leukocyte esterase detection by dipstick 3+ NEGATIVE Automated urine sediment erythrocyte count by microscopy (number/high power field) [HPF] NRG Automated urine sediment leukocyte count by microscopy (number/high power field) TNTC NRG Bacteria detection in urine sediment by light microscopy LARGE NRG Squamous epithelial cells detection in urine sediment by light microscopy 2-5 NRG Crystals detection in urine sediment by light microscopy NONE NRG Casts detection in urine sediment by light microscopy NONE NRG Mucus detection in urine sediment by light microscopy NEGATIVE NRG Complete urinalysis with reflex to culture YES NRG Urine drug screening test - 12/30/18 02:30 Urine phencyclidine detection by screening method NEGATIVE NEGATIVE Urine benzodiazepines detection by screening method NEGATIVE NEGATIVE Urine cocaine detection NEGATIVE NEGATIVE Urine amphetamines detection by screening method NEGATIVE NEGATIVE Urine methamphetamine detection by screening method NEGATIVE NEGATIVE Urine cannabinoids detection by screening method NEGATIVE NEGATIVE Urine opiates detection by screening method NEGATIVE NEGATIVE Urine barbiturates detection NEGATIVE NEGATIVE Screening urine tricyclic antidepressants detection NEGATIVE NEGATIVE Urine methadone detection by screening method NEGATIVE NEGATIVE Urine oxycodone detection NEGATIVE NEGATIVE Urine propoxyphene detection NEGATIVE NEGATIVE Bacterial urine culture - 12/30/18 02:30 Bacterial urine culture [id number] NRG COLONY COUNT >100,000/ML NRG FTX;REPORTABLE SUSCEPTIBILITY REPORTED 01/01/19 9:05 NRG FREE TEXT ENTRY 3 ORGANISM ID REPORT RCD 12/31 17:05 NRG RML Sensitivity Panel - 12/30/18 02:30 Gentamicin susceptibility test by minimum inhibitory concentration <= NRG Trimethoprim/sulfamethoxazole susceptibility test by minimum inhibitoryconcentration > NRG Levofloxacin susceptibility test by minimum inhibitory concentration <= NRG Ampicillin susceptibility test by minimum inhibitory concentration > NRG Cefazolin susceptibility test by minimum inhibitory concentration 2 NRG Ceftriaxone susceptibility test by minimum inhibitory concentration <= NRG Ciprofloxacin susceptibility test by minimum inhibitory concentration <= NRG Meropenem susceptibility test by minimum inhibitory concentration <= NRG Nitrofurantoin susceptibility test by minimum inhibitory concentration <= NRG Amoxicillin and clavulanate potassium susc BRAEDEN = NRG Complete blood count (CBC) with automated white blood cell (WBC) differential - 02/07/19 21:48 Blood leukocytes automated count (number/volume) 8.5 10*3/uL 4.3-11.0 Blood erythrocytes automated count (number/volume) 3.93 10*6/uL 4.35-5.85 Venous blood hemoglobin measurement (mass/volume) 11.8 g/dL 11.5-16.0 Blood hematocrit (volume fraction) 35 % 35-52 Automated erythrocyte mean corpuscular volume 89 [foz_us] 80-99 Automated erythrocyte mean corpuscular hemoglobin (mass per erythrocyte) 30 pg 25-34 Automated erythrocyte mean corpuscular hemoglobin concentration measurement (mass/volume) 34 g/dL 32-36 Automated erythrocyte distribution width ratio 13.6 % 10.0- 14.5 Automated blood platelet count (count/volume) 159 10*3/uL 130-400 Automated blood platelet mean volume measurement 9.9 [foz_us] 7.4-10.4 Automated blood neutrophils/100 leukocytes 74 % 42-75 Automated blood lymphocytes/100 leukocytes 15 % 12-44 Blood monocytes/100 leukocytes 11 % 0-12 Automated blood eosinophils/100 leukocytes 0 % 0-10 Automated blood basophils/100 leukocytes 0 % 0-10 Blood neutrophils automated count (number/volume) 6.3 10*3 1.8-7.8 Blood lymphocytes automated count (number/volume) 1.3 10*3 1.0-4.0 Blood monocytes automated count (number/volume) 1.0 10*3 0.0- 1.0 Automated eosinophil count 0.0 10*3/uL 0.0-0.3 Automated blood basophil count (count/volume) 0.0 10*3/uL 0.0-0.1 PT panel in platelet poor plasma by coagulation assay - 02/07/19 21:48 Prothrombin time (PT) in platelet poor plasma by coagulation assay 14.5 s 12.2-14.7 INR in platelet poor plasma or blood by coagulation assay 1.1 0.8-1.4 Activated partial thromboplastin time (aPTT) in platelet poor plasma bycoagulation assay - 02/07/19 21:48 Activated partial thromboplastin time (aPTT) in platelet poor plasma bycoagulation assay 32 s 24-35 Comprehensive metabolic panel - 02/07/19 21:48 Serum or plasma sodium measurement (moles/volume) 135 mmol/L 135-145 Serum or plasma potassium measurement (moles/volume) 3.7 mmol/L 3.6-5.0 Serum or plasma chloride measurement (moles/volume) 106 mmol/L 98-107 Carbon dioxide 17 mmol/L 21-32 Serum or plasma anion gap determination (moles/volume) 12 mmol/L 5-14 Serum or plasma urea nitrogen measurement (mass/volume) 7 mg/dL 7-18 Serum or plasma creatinine measurement (mass/volume) 0.83 mg/dL 0.60-1.30 Serum or plasma urea nitrogen/creatinine mass ratio 8 NRG Serum or plasma creatinine measurement with calculation of estimated glomerular filtration rate > NRG Serum or plasma glucose measurement (mass/volume) 98 mg/dL 70-105 Serum or plasma calcium measurement (mass/volume) 9.8 mg/dL 8.5-10.1 Serum or plasma total bilirubin measurement (mass/volume) 3.2 mg/dL 0.1-1.0 Serum or plasma alkaline phosphatase measurement (enzymatic activity/volume) 78 U/L 40-136 Serum or plasma aspartate aminotransferase measurement (enzymatic activity/volume) 14 U/L 5-34 Serum or plasma alanine aminotransferase measurement (enzymatic activity/volume) 12 U/L 0-55 Serum or plasma protein measurement (mass/volume) 7.7 g/dL 6.4-8.2 Serum or plasma albumin measurement (mass/volume) 4.7 g/dL 3.2-4.5 Complete urinalysis with reflex to culture - 02/07/19 21:51 Urine color determination YELLOW NRG Urine clarity determination SLIGHTLY CLOUDY NRG Urine pH measurement by test strip 6 5-9 Specific gravity of urine by test strip 1.010 1.016-1.022 Urine protein assay by test strip, semi-quantitative 3+ NEGATIVE Urine glucose detection by automated test strip NEGATIVE NEGATIVE Erythrocytes detection in urine sediment by light microscopy 2+ NEGATIVE Urine ketones detection by automated test strip 4+ NEGATIVE Urine nitrite detection by test strip POSITIVE NEGATIVE Urine total bilirubin detection by test strip NEGATIVE NEGATIVE Urine urobilinogen measurement by automated test strip (mass/volume) NORMAL NORMAL Urine leukocyte esterase detection by dipstick 3+ NEGATIVE Automated urine sediment erythrocyte count by microscopy (number/high power field) NONE NRG Automated urine sediment leukocyte count by microscopy (number/high power field) TNTC NRG Bacteria detection in urine sediment by light microscopy LARGE NRG Squamous epithelial cells detection in urine sediment by light microscopy 5-10 NRG Crystals detection in urine sediment by light microscopy NONE NRG Casts detection in urine sediment by light microscopy NONE NRG Mucus detection in urine sediment by light microscopy NEGATIVE NRG Complete urinalysis with reflex to culture CULTURE PENDING NRG Blood lactic acid measurement (moles/volume) - 02/07/19 22:05 Blood lactic acid measurement (moles/volume) 0.62 mmol/L 0.50- 2.00 Encounters ACCT No. Visit Date/Time Discharge Status Pt. Type Provider Facility Loc./Unit Complaint [id number] 01/11/2019 15:20:00 01/11/2019 23:59:59 [facility] Outpatient NIDA ROACH [facility] [id number] 12/27/2018 16:20:00 Document Registration [id number] 12/30/2018 01:59:00 12/30/2018 03:14:00 DIS Outpatient ACOSTA DAVILA MD [facility] ER HOT COLD FLASHES,NAUSEA FOR 5 DAYS [id number] 12/13/2018 10:26:00 12/13/2018 12:31:00 DIS Outpatient MANOLO YEBOAH [facility] ER ABD PAIN;VOMITING [id number] 10/26/2018 09:09:00 10/26/2018 12:08:00 DIS Emergency AISLINN VELA MD [facility] ER POSS MED REACTION [id number] 09/24/2018 15:58:00 09/24/2018 19:20:00 DIS Outpatient MANOLO YEBOAH [facility] ER ABDOMINAL PAIN, VOMITING [id number] 08/28/2018 06:33:00 08/28/2018 10:32:00 DIS Emergency AISLINN VELA MD [facility] ER POSS FOOD POISONING,KIDNEY PAIN [id number] 02/07/2019 21:37:00 ACT Emergency DANE KONG, AISLINN Ramirez [facility] ER BACK PAIN,CHILLS,HEADACHE
[2019-02-08 00:21] VITALS: BP 114/68
--- NOTE | 2019-02-08 05:53 | Diagnostic Imaging Report ---
EXAMINATION: Portable erect AP chest at 1112 PM INDICATION: Fever and chills There are no prior studies available for comparison. The heart size is within normal limits. The lungs are clear. There is no evidence for pneumonia or for pleural effusion and there is no sign of a pneumothorax. The mediastinum is not widened. The osseous structures are intact. IMPRESSION: There is no evidence for active disease. Dictated by: Dictated on workstation # [id number]
== END 2019-02-08 00:23 | disposition home or self-care (01) ==
LOC: EDUNIT# 21:36 → ER 21:37
DX: N39.0 Urinary tract infection, site not specified (principal); F41.9 Anxiety disorder, unspecified; F32.9 Major depressive disorder, single episode, unspecified; Z91.5 Personal history of self-harm
CPT/HCPCS: 36415; 71045; 80053; 81000; 83605; 85025; 85610; 85730; 87040; 87077; 87088; 87186; 96361; 96374; 96375

== ENCOUNTER 2019-03-13 05:52 | Emergency (ER) | payer OTHER ==
[~2019-03-13] VITALS: Ht 162.6 cm; Wt 54.4 kg
--- OUTSIDE RECORDS SUMMARY | 2019-03-13 05:59 | XMS REPORT | Continuity of Care Document ---
Author Organization Unknown Address Unknown Allergies Active Description Code Type Severity Reaction Onset Reported/Identified Relationship to Patient Clinical Status Yes No Known Drug Allergies [id number] Drug Allergy Unknown N/A 08/28/2018 Medications There is no data. Problems Date Dx Coded Attending Type Code Diagnosis Diagnosed By 08/28/2018 AISLINN VELA MD, Ot F32.9 MAJOR DEPRESSIVE DISORDER, SINGLE EPISOD 08/28/2018 AISLINN VELA MD, Ot F41.9 ANXIETY DISORDER, UNSPECIFIED 08/28/2018 AISLINN VELA MD Ot R10.84 GENERALIZED ABDOMINAL PAIN 08/28/2018 AISLINN VELA MD Ot R11.2 NAUSEA WITH VOMITING, UNSPECIFIED 08/28/2018 AISLINN VELA MD Ot Z87.440 PERSONAL HISTORY OF URINARY (TRACT) INFE 09/01/2018 AISLINN VELA MD Ot F32.9 MAJOR DEPRESSIVE DISORDER, SINGLE EPISOD 09/01/2018 AISLINN VELA MD Ot F41.9 ANXIETY DISORDER, UNSPECIFIED 09/01/2018 AISLINN VELA MD Ot R10.84 GENERALIZED ABDOMINAL PAIN 09/01/2018 AISLINN VELA MD Ot R11.2 NAUSEA WITH VOMITING, UNSPECIFIED 09/01/2018 AISLINN VELA MD Ot Z87.440 PERSONAL HISTORY OF URINARY (TRACT) INFE 09/24/2018 BERNMANOLO CEBALLOS Ot F32.9 MAJOR DEPRESSIVE DISORDER, SINGLE EPISOD 09/24/2018 BERNOTDAWNIS Ot F41.9 ANXIETY DISORDER, UNSPECIFIED 09/24/2018 BERNDAWN CEBALLOSIS Ot N39.0 URINARY TRACT INFECTION, SITE NOT SPECIF 09/24/2018 BERNOTDAWNIS Ot R10.30 LOWER ABDOMINAL PAIN, UNSPECIFIED 09/24/2018 BERNOTDAWNIS Ot Z87.440 PERSONAL HISTORY OF URINARY (TRACT) INFE 09/24/2018 BERNOT, MANOLO Ot Z87.448 PERSONAL HISTORY OF OTHER DISEASES OF UR 09/24/2018 BERNOT, MANOLO Ot Z91.5 PERSONAL HISTORY OF SELF-HARM 09/27/2018 BERNDAWN CEBALLOSIS Ot F32.9 MAJOR DEPRESSIVE DISORDER, SINGLE EPISOD 09/27/2018 BERNOT, MANOLO Ot F41.9 ANXIETY DISORDER, UNSPECIFIED 09/27/2018 BERNOT, MANOLO Ot N39.0 URINARY TRACT INFECTION, SITE NOT SPECIF 09/27/2018 BERNOT, MANOLO Ot R10.30 LOWER ABDOMINAL PAIN, UNSPECIFIED 09/27/2018 BERNOT MANOLO Ot Z87.440 PERSONAL HISTORY OF URINARY (TRACT) INFE 09/27/2018 BERNOT, MANOLO Ot Z87.448 PERSONAL HISTORY OF OTHER DISEASES OF UR 09/27/2018 BERNOT MANOLO Ot Z91.5 PERSONAL HISTORY OF SELF-HARM 10/02/2018 OBINNA MANOLO Ot F32.9 MAJOR DEPRESSIVE DISORDER, SINGLE EPISOD 10/02/2018 BERNOT MANOLO Ot F41.9 ANXIETY DISORDER, UNSPECIFIED 10/02/2018 BERNOT, MANOLO Ot N39.0 URINARY TRACT INFECTION, SITE NOT SPECIF 10/02/2018 BERNOT, MANOLO Ot R10.30 LOWER ABDOMINAL PAIN, UNSPECIFIED 10/02/2018 BERNOT MANOLO Ot Z87.440 PERSONAL HISTORY OF URINARY (TRACT) INFE 10/02/2018 JORGEOT MANOLO Ot Z87.448 PERSONAL HISTORY OF OTHER DISEASES OF UR 10/02/2018 OBINNA MANOLO Ot Z91.5 PERSONAL HISTORY OF SELF-HARM 10/26/2018 AISLINN VELA MD Ot F32.9 MAJOR DEPRESSIVE DISORDER, SINGLE EPISOD 10/26/2018 AISLINN VELA MD Ot F41.9 ANXIETY DISORDER, UNSPECIFIED 10/26/2018 AISLINN VELA MD Ot R11.2 NAUSEA WITH VOMITING, UNSPECIFIED 10/26/2018 AISLINN VELA MD Ot R19.7 DIARRHEA, UNSPECIFIED 10/26/2018 AISLINN VELA MD Ot Z87.440 PERSONAL HISTORY OF URINARY (TRACT) INFE 10/26/2018 AISLINN VELA MD Ot Z87.448 PERSONAL HISTORY OF OTHER DISEASES OF UR 10/26/2018 AISLINN VELA MD Ot Z91.5 PERSONAL HISTORY OF SELF-HARM 10/26/2018 DANE KONG, AISLINN Ramirez Ot Z98.890 OTHER SPECIFIED POSTPROCEDURAL STATES 12/13/2018 BERNOT, MANOLO Ot F32.9 MAJOR DEPRESSIVE DISORDER, SINGLE EPISOD 12/13/2018 BERNOT, MANOLO Ot F41.9 ANXIETY DISORDER, UNSPECIFIED 12/13/2018 BERNOT, MANOLO Ot N39.0 URINARY TRACT INFECTION, SITE NOT SPECIF 12/13/2018 BERNOT, MANOLO Ot R11.2 NAUSEA WITH VOMITING, UNSPECIFIED 12/13/2018 BERNOT, MANOLO Ot Z87.448 PERSONAL HISTORY OF OTHER DISEASES OF UR 12/13/2018 BERNOT, MANOLO Ot Z91.5 PERSONAL HISTORY OF SELF-HARM 12/15/2018 BERNOT, MANOLO Ot F32.9 MAJOR DEPRESSIVE DISORDER, SINGLE EPISOD 12/15/2018 BERNOT, MANOLO Ot F41.9 ANXIETY DISORDER, UNSPECIFIED 12/15/2018 BERNOT, MANOLO Ot N39.0 URINARY TRACT INFECTION, SITE NOT SPECIF 12/15/2018 BERNOT, MANOLO Ot R11.2 NAUSEA WITH VOMITING, UNSPECIFIED 12/15/2018 BERNOT, MANOLO Ot Z87.448 PERSONAL HISTORY OF OTHER DISEASES OF UR 12/15/2018 BERNOT, MANOLO Ot Z91.5 PERSONAL HISTORY OF SELF-HARM 12/30/2018 ACOSTA DAVILA MD Ot F32.9 MAJOR DEPRESSIVE DISORDER, SINGLE EPISOD 12/30/2018 ACOSTA DAVILA MD Ot F41.9 ANXIETY DISORDER, UNSPECIFIED 12/30/2018 ACOSTA DAVILA MD Ot N39.0 URINARY TRACT INFECTION, SITE NOT SPECIF 12/30/2018 ACOSTA DAVILA MD Ot R10.9 UNSPECIFIED ABDOMINAL PAIN 12/30/2018 ACOSTA DAVILA MD Ot Z87.440 PERSONAL HISTORY OF URINARY (TRACT) INFE 12/30/2018 ACOSTA DAVILA MD Ot Z91.5 PERSONAL HISTORY OF SELF-HARM 01/01/2019 ACOSTA DAVILA MD Ot F32.9 MAJOR DEPRESSIVE DISORDER, SINGLE EPISOD 01/01/2019 ACOSTA DAVILA MD Ot F41.9 ANXIETY DISORDER, UNSPECIFIED 01/01/2019 ACOSTA DAVILA MD J Ot N39.0 URINARY TRACT INFECTION, SITE NOT SPECIF 01/01/2019 ACOSTA DAVILA MD Ot R10.9 UNSPECIFIED ABDOMINAL PAIN 01/01/2019 ACOSTA DAVILA MD Ot Z87.440 PERSONAL HISTORY OF URINARY (TRACT) INFE 01/01/2019 ACOSTA DAVILA MD Ot Z91.5 PERSONAL HISTORY OF SELF-HARM 02/10/2019 AISLINN VELA MD, Ot F32.9 MAJOR DEPRESSIVE DISORDER, SINGLE EPISOD 02/10/2019 AISLINN VELA MD, Ot F41.9 ANXIETY DISORDER, UNSPECIFIED 02/10/2019 AISLINN VELA MD, Ot N39.0 URINARY TRACT INFECTION, SITE NOT SPECIF 02/10/2019 AISLINN VELA MD, Ot R50.9 FEVER, UNSPECIFIED 02/10/2019 AISLINN VELA MD, Ot Z91.5 PERSONAL HISTORY OF SELF-HARM Procedures [...] culture - 09/24/18 18:02 Bacterial urine culture [id number] NRG COLONY COUNT >100,000/ML NRG FTX;REPORTABLE RML [...] plasma albumin measurement (mass/volume) 4.9 g/dL 3.2-4.5 TEST, SERUM (QUAL) - 11/12/18 12:20 HCG, TOTAL, QL NEGATIVE See Note: Complete urinalysis with reflex to culture - [...] culture - 12/13/18 11:04 Bacterial urine culture [id number] NRG COLONY COUNT >100,000/ML NRG FTX;REPORTABLE NO [...] culture - 12/30/18 02:30 Bacterial urine culture [id number] NRG COLONY COUNT >100,000/ML NRG FTX;REPORTABLE SUSCEPTIBILITY [...] with reflex to culture CULTURE PENDING NRG Bacterial urine culture - 02/07/19 21:51 Bacterial urine culture [id number] NRG COLONY COUNT >100,000/ML NRG FREE TEXT ENTRY 2 ID REPORTED 02/08/19 17:05 NRG FREE TEXT ENTRY 3 SUSCEPTIBILITY REPORTED 02/09/19 11:30 NRG Dirithromycin susceptibility test by disk diffusion - 02/07/19 21:51 Gentamicin susceptibility test by minimum inhibitory concentration [...] and clavulanate potassium susc BRAEDEN = NRG Blood lactic acid measurement (moles/volume) - 02/07/19 22:05 Blood lactic acid measurement (moles/volume) 0.62 mmol/L 0.50- 2.00 Bacterial blood culture - 02/07/19 22:05 QUANTITY OF GROWTH . NRG Bacterial blood culture SEE COMMEN NRG Bacterial blood culture - 02/07/19 22:21 Bacterial blood culture NG NRG Encounters ACCT No. Visit Date/Time Discharge Status Pt. Type Provider Facility Loc./Unit Complaint [id number] 01/11/2019 15:20:00 01/11/2019 23:59:59 [facility] Outpatient DOC LEON [facility] [id number] 12/27/2018 16:20:00 Document Registration [id number] 11/12/2018 12:15:00 Document Registration [id number] 02/07/2019 21:37:00 02/08/2019 00:23:00 DIS Outpatient AISLINN VELA MD [facility] ER BACK PAIN,CHILLS,HEADACHE [id number] 12/30/2018 01:59:00 12/30/2018 03:14:00 DIS Emergency ACOSTA DAVILA MD [facility] ER HOT COLD FLASHES,NAUSEA FOR 5 DAYS [id number] 12/13/2018 10:26:00 12/13/2018 12:31:00 DIS Emergency MANOLO YEBOAH [facility] ER ABD PAIN;VOMITING [id number] 10/26/2018 09:09:00 10/26/2018 12:08:00 DIS Emergency AISLINN VELA MD [facility] ER POSS MED REACTION [id number] 09/24/2018 15:58:00 09/24/2018 19:20:00 DIS Emergency MANOLO YEBOAH [facility] ER ABDOMINAL PAIN, VOMITING [id number] 08/28/2018 06:33:00 08/28/2018 10:32:00 DIS Emergency DANE KONG, AISLINN Ramirez [facility] ER POSS FOOD POISONING,KIDNEY PAIN
--- NOTE | 2019-03-13 06:09 | ED GI ---
General Chief Complaint: Abdominal/GI Problems Stated Complaint: VOMITTING, DIZZINESS Source of Information: Patient History of Present Illness Date Seen by Provider: Mar 13, 2019 Time Seen by Provider: 06:02 Initial Comments PT ARRIVES VIA POV FROM HOME C/O NAUSEA/VOMITING/DIARRHEA--STATES SYMPTOMS BEGAN AROUND 0100 " SOON MY BOYFRIEND GOT HOME FROM WORK" STATES SHE HAS VOMITED X 6 AND HAD DIARRHEA X 2 STATES "MY KIDNEYS HURT" NO FEVER STATES SHE FEELS LIGHTHEADED NO URINARY SYMPTOMS AND VOIDING A NORMAL AMOUNT NO SICK CONTACTS OR SUSPICIOUS FOODS LMP 02/05/19--NEXPLANON PLACED 04/2018 PT HAS BEEN HERE 7 TIMES SINCE AUGUST 2018, HER FIRST VISIT HERE--MOVED HERE FROM [place] IN AUGUST--ALL FOR SAME, MOST WITH DX OF UTI LAST VISIT 02/07/19--WAS GIVEN RX FOR KEFLEX 500 MG BID X 7 DAYS PT WITH FREQUENT UTI'S AND HAD BEEN SEEN BY UROLOGY IN [place], BUT NOT SEEN ANYONE HERE. STATES SHE HAD A PICC LINE A YEAR AGO FOR IV ANTIBIOTICS. CULTURES HAVE GROWN E. COLI MULTIPLE TIMES--RESISTANT TO BACTRIM AND AMPICILLIN, OTHERWISE MULTIPLE SENSITIVITIES PCP: [facility] Allergies and Home Medications Allergies Coded Allergies: No Known Drug Allergies (Unverified , 03/13/19) Home Medications Cephalexin 500 Mg Capsule, 500 MG PO BID Prescribed by: MANOLO YEBOAH on 09/24/18 1857 Cephalexin 500 Mg Tablet, 500 MG PO BID Prescribed by: ACOSTA DAVILA on 12/30/18 0306 Cephalexin 500 Mg Tablet, 500 MG PO BID Prescribed by: AISLINN VELA on 02/08/19 0011 Nitrofurantoin Monohyd/M-Cryst 100 Mg Capsule, 1 TAB PO BID Prescribed by: MANOLO YEBOAH on 12/13/18 1220 Nitrofurantoin Monohyd/M-Cryst 100 Mg Capsule, 100 MG PO BID Prescribed by: HARPREET HOWARD on 03/13/19 0651 Ondansetron 4 Mg Tab.rapdis, 4 MG PO Q6H PRN for NAUSEA/VOMITING Prescribed by: AISLINN VELA on 08/28/18 1019 Ondansetron 4 Mg Tab.rapdis, 4 MG PO Q4H Prescribed by: HARPREET HOWARD on 03/13/19 0651 Ondansetron HCl 4 Mg Tab, 4 MG PO Q4H PRN for NAUSEA/VOMITING-1ST LINE Prescribed by: MANOLO YEBOAH on 09/24/18 1857 Ondansetron HCl 4 Mg Tab, 4 MG PO Q4H PRN for NAUSEA/VOMITING-1ST LINE Prescribed by: MANOLO YEBOAH on 12/13/18 1220 Phenazopyridine HCl 100 Mg Tablet, 100 MG PO TID Prescribed by: MANOLO YEBOAH on 09/24/18 185 Phenazopyridine HCl 200 Mg Tablet, 1 TAB PO TID Prescribed by: HARPREET HOWARD on 03/13/19 0651 Patient Home Medication List Home Medication List Reviewed: Yes Review of Systems Review of Systems Constitutional: see HPI, dizziness; No fever Respiratory: No Symptoms Reported Cardiovascular: No Symptoms Reported Gastrointestinal: See HPI, Diarrhea, Nausea, Vomiting Genitourinary: See HPI; Denies Burning, Denies Frequency; Flank Pain; Denies Pain, Denies Urgency Musculoskeletal: see HPI, back pain Skin: no symptoms reported Psychiatric/Neurological: No Symptoms Reported Endocrine: No Symptoms Reported Hematologic/Lymphatic: No Symptoms Reported Past Zyrscqp-[id number]-Kpcupa Hx Patient Social History Alcohol Use: Denies Use Recreational Drug Use: Yes (THC) Drug of Choice: THC Smoking Status: Never a Smoker 2nd Hand Smoke Exposure: No Recent Foreign Travel: No Contact w/Someone Who Travel: No Recent Hopitalizations: No Immunizations Up To Date PED Vaccines UTD: Yes Seasonal Allergies Seasonal Allergies: No Past Medical History Surgeries: Yes (LEFT HIP DYSPLASIA CORRECTIVE SURGERY) Orthopedic Respiratory: No Cardiac: No Neurological: No Genitourinary: Yes Kidney Infection, UTI-Chronic Gastrointestinal: No Musculoskeletal: Yes (LEFT HIP DISPLASIA- CORRECTED) Endocrine: No HEENT: No Cancer: No Psychosocial: Yes (HOSPITALIZED FOR SUICIDE ATTEMPT -04/24) Anxiety, Suicide Attempts, Depression Integumentary: No Blood Disorders: No Family Medical History No Pertinent Family Hx Physical Exam Vital Signs Vital Signs - First Documented 03/13/19 06:06 Temp 97.6 Pulse 101 Resp 14 B/P (MAP) 123/69 (87) Pulse Ox 99 O2 Delivery Room Air Capillary Refill : Height/Weight/BMI Height: 5'4.00" Weight: 120lbs. oz. 54.589920dx; 14.06 BMI Method:Estimated General Appearance: WD/WN, no apparent distress, other (SIMLING, WALKS UPRIGHT AND MOVES QUICKLY WITHOUT DIFFICULTY, DOES NOT APPEAR ILL OR TO BE IN ANY DISCOMFORT OR DISTRESS. 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 as tested, no motor/sensory deficits, alert, normal mood/affect, oriented x 3 Skin: normal color, warm/dry Progress/Results/Core Measures Results/Orders Lab Results Laboratory Tests Test 03/13/19 06:10 03/13/19 06:27 Range/Units Urine Color YELLOW Urine Clarity CLEAR Urine pH 6 5-9 Urine Specific [place] 1.020 1.016-1.022 Urine Protein NEGATIVE NEGATIVE Urine Glucose (UA) NEGATIVE NEGATIVE Urine Ketones NEGATIVE NEGATIVE Urine Nitrite NEGATIVE NEGATIVE Urine Bilirubin NEGATIVE NEGATIVE Urine Urobilinogen NORMAL NORMAL MG/DL Urine Leukocyte Esterase 1+ H NEGATIVE Urine RBC (Auto) 1+ H NEGATIVE Urine RBC 0-2 /HPF Urine WBC 10-25 H /HPF Urine Squamous Epithelial Cells 2-5 /HPF Urine Crystals NONE /LPF Urine Bacteria FEW H /HPF Urine Casts NONE /LPF Urine Mucus NEGATIVE /LPF Urine Culture Indicated YES Urine Opiates Screen NEGATIVE NEGATIVE Urine Oxycodone Screen NEGATIVE NEGATIVE Urine Methadone Screen NEGATIVE NEGATIVE Urine Propoxyphene Screen NEGATIVE NEGATIVE Urine Barbiturates Screen NEGATIVE NEGATIVE Ur Tricyclic Antidepressants Screen NEGATIVE NEGATIVE Urine Phencyclidine Screen NEGATIVE NEGATIVE Urine Amphetamines Screen NEGATIVE NEGATIVE Urine Methamphetamines Screen NEGATIVE NEGATIVE Urine Benzodiazepines Screen NEGATIVE NEGATIVE Urine Cocaine Screen NEGATIVE NEGATIVE Urine Cannabinoids Screen POSITIVE H NEGATIVE White Blood Count 6.4 4.3-11.0 10^3/uL Red Blood Count 4.10 L 4.35-5.85 10^6/uL Hemoglobin 12.2 11.5-16.0 G/DL Hematocrit 36 35-52 % Mean Corpuscular Volume 88 80-99 FL Mean Corpuscular Hemoglobin 30 25-34 PG Mean Corpuscular Hemoglobin Concent 34 32-36 G/DL Red Cell Distribution Width 13.6 10.0-14.5 % Platelet Count 208 130-400 10^3/uL Mean Platelet Volume 10.9 H 7.4-10.4 FL Neutrophils (%) (Auto) 52 42-75 % Lymphocytes (%) (Auto) 38 12-44 % Monocytes (%) (Auto) 7 0-12 % Eosinophils (%) (Auto) 2 0-10 % Basophils (%) (Auto) 1 0-10 % Neutrophils # (Auto) 3.3 1.8-7.8 X 10^3 Lymphocytes # (Auto) 2.4 1.0-4.0 X 10^3 Monocytes # (Auto) 0.5 0.0-1.0 X 10^3 Eosinophils # (Auto) 0.2 0.0-0.3 10^3/uL Basophils # (Auto) 0.0 0.0-0.1 10^3/uL Sodium Level 139 135-145 MMOL/L Potassium Level 4.3 3.6-5.0 MMOL/L Chloride Level 110 H 98-107 MMOL/L Carbon Dioxide Level 18 L 21-32 MMOL/L Anion Gap 11 5-14 MMOL/L Blood Urea Nitrogen 10 7-18 MG/DL Creatinine 0.84 0.60-1.30 MG/DL Estimat Glomerular Filtration Rate > 60 BUN/Creatinine Ratio 12 Glucose Level 102 70-105 MG/DL Calcium Level 9.3 8.5-10.1 MG/DL Corrected Calcium 8.5-10.1 MG/DL Magnesium Level 2.7 H 1.8-2.4 MG/DL Total Bilirubin 1.1 H 0.1-1.0 MG/DL Aspartate Amino Transf (AST/SGOT) 28 5-34 U/L Alanine Aminotransferase (ALT/SGPT) 15 0-55 U/L Alkaline Phosphatase 69 40-136 U/L Total Protein 8.0 6.4-8.2 GM/DL Albumin 4.6 H 3.2-4.5 GM/DL Amylase Level 34 25-125 U/L Lipase 42 8-78 U/L Serum Alcohol < 10 <10 MG/DL My Orders Orders - HARPREET HOWARD DO Urine Bedside (03/13/19 06:02) Ua Culture If Indicated (03/13/19 06:02) Drug Screen Stat (Urine) (03/13/19 06:05) Ed Iv/Invasive Line Start (03/13/19 06:29) Alcohol (03/13/19 06:29) Amylase (03/13/19 06:29) Cbc With Automated Diff (03/13/19 06:29) Comprehensive Metabolic Panel (03/13/19 06:29) Lipase (03/13/19 06:29) Magnesium (03/13/19 06:29) Urine Culture (03/13/19 06:10) Ondansetron Injection (Zofran Injectio (03/13/19 07:15) Vital Signs/I&O 03/13/19 03/13/19 06:06 07:13 Temp 97.6 98.6 Pulse 101 78 Resp 14 14 B/P (MAP) 123/69 (87) 123/85 (98) Pulse Ox 99 98 O2 Delivery Room Air Room Air Progress Progress Note : Progress Note NO VOMITING OR DIARRHEA DURING ER STAY NO C/O NAUSEA OR ANY OTHER COMPLAINTS UNEVENTFUL ER STAY PT ADVISED TO STOP MARIJUANA USE IT CAN CONTRIBUTE TO CHRONIC NAUSEA/VOMITING/GI SYMPTOMS EXPLAINED IMPORTANCE OF TAKING HER MEDICATION PRESCRIBED, NOT MISSING DOSES AND TAKING ALL OF THE PRESCRIPTION Departure Impression Primary Impression: Urinary tract infection Additional Impressions: CHRONIC UTI'S Illicit drug use Disposition: HOME, SELF-CARE Condition: Stable Departure-Patient Inst. Referrals: [facility] (PCP/Family) Primary Care Physician Patient Instructions: Drug Abuse and Drug Addiction (DC), Nausea and Vomiting, Adult (DC), Urinary Tract Infection, Adult (DC) Add. Discharge Instructions: LOTS OF CLEAR LIQUIDS--WATER, BROTH, JELLO, GATORADE BRATS DIET--BANANAS, RICE, APPLESAUCE, TOAST, SALTINES NO MARIJUANA OR ANY OTHER DRUGS!!! FOLLOW UP WITH [facility] AND WITH DR. GILLIAM THIS WEEK FOR FURTHER CARE All discharge instructions reviewed with patient and/or family. Voiced understanding. Scripts Nitrofurantoin Monohyd/M-Cryst (Macrobid 100 mg Capsule) 100 Mg Capsule 100 MG PO BID, #60 CAP Prov: MARISSA HOWARDA K 03/13/19 Phenazopyridine HCl (Pyridium) 200 Mg Tablet 1 TAB PO TID for BLADDER DISCOMFORT, #15 TAB Prov: HARPREET HOWARD K DO 03/13/19 Ondansetron (Ondansetron Odt) 4 Mg Tab.rapdis 4 MG PO Q4H for Nausea/Vomiting, #10 TAB Prov: HARPREET HOWARD DO 03/13/19 HARPREET HOWARD DO Mar 13, 2019 06:09
[2019-03-13 06:18] LABS: BILIRUBIN,URINE NEGATIVE (NEGATIVE); CLARITY,URINE CLEAR; COLOR,URINE YELLOW; GLUCOSE, URINE (UA) NEGATIVE (NEGATIVE); KETONES,URINE NEGATIVE (NEGATIVE); LEUKOCYTE ESTERASE ,URINE 1+ (NEGATIVE); NITRITE,URINE NEGATIVE (NEGATIVE); PH,URINE 6 (5-9); PROTEIN,URINE NEGATIVE (NEGATIVE); UROBILINOGEN,URINE NORMAL (NORMAL)
[2019-03-13 06:34] LABS: BASOPHILS % (AUTO) 1 % (0-10); EOSINOPHILS # (AUTO) 0.2 10^3/uL (0.0-0.3); EOSINOPHILS % (AUTO) 2 % (0-10); HEMATOCRIT 36 % (35-52); HEMOGLOBIN 12.2 G/DL (11.5-16.0); LYMPHOCYTES # (AUTO) 2.4 X 10^3 (1.0-4.0); LYMPHOCYTES % (AUTO) 38 % (12-44); MEAN CORPUSCULAR HEMOGLOBIN 30 PG (25-34); MEAN CORPUSCULAR HGB CONC 34 G/DL (32-36); MEAN CORPUSCULAR VOLUME 88 FL (80-99); MEAN PLATELET VOLUME 10.9 FL (7.4-10.4); MONOCYTES # (AUTO) 0.5 X 10^3 (0.0-1.0); MONOCYTES % (AUTO) 7 % (0-12); NEUTROPHILS # (AUTO) 3.3 X 10^3 (1.8-7.8); NEUTROPHILS % (AUTO) 52 % (42-75); PLATELET COUNT 208 10^3/uL (130-400); RED CELL DISTRIBUTION WIDTH 13.6 % (10.0-14.5); WHITE BLOOD COUNT 6.4 10^3/uL (4.3-11.0)
[2019-03-13 06:41] LABS: BACTERIA,URINE FEW /HPF; RBC,URINE 0-2 /HPF
[2019-03-13 06:45] LABS: AMPHETAMINE SCREEN, URINE NEGATIVE (NEGATIVE); BARBITURATE SCREEN URINE NEGATIVE (NEGATIVE); BENZODIAZEPINES SCREEN URINE NEGATIVE (NEGATIVE); CANNABINOID SCREEN, URINE POSITIVE (NEGATIVE); COCAINE SCREEN URINE NEGATIVE (NEGATIVE); METHADONE STAT NEGATIVE (NEGATIVE); METHAMPHETAMINE SCREEN URINE S NEGATIVE (NEGATIVE); OPIATE SCREEN URINE NEGATIVE (NEGATIVE); OXYCODONE STAT NEGATIVE (NEGATIVE); PROPOXYPHENE STAT NEGATIVE (NEGATIVE); TRICYCLIC ANTIDEPRESSANTS SCRE NEGATIVE (NEGATIVE)
[2019-03-13] MEDS ORDERED: PHEN-640 PO (06:51)
[2019-03-13] MEDS ORDERED: ONDA4TAB11 PO (06:51)
[2019-03-13] MEDS ORDERED: NITR-65 PO (06:51)
[2019-03-13 06:57] LABS: ALANINE AMINOTRANSFERASE 15 U/L (0-55); ALBUMIN 4.6 GM/DL (3.2-4.5); ALKALINE PHOSPHATASE 69 U/L (40-136); AMYLASE 34 U/L (25-125); BILIRUBIN,TOTAL 1.1 MG/DL (0.1-1.0); BUN/CREATININE RATIO 12; CALCIUM 9.3 MG/DL (8.5-10.1); CARBON DIOXIDE 18 MMOL/L (21-32); CHLORIDE 110 MMOL/L (98-107); CREATININE SERUM 0.84 MG/DL (0.60-1.30); GFR ESTIMATED > 60; GLUCOSE 102 MG/DL (70-105); LIPASE 42 U/L (8-78); MAGNESIUM 2.7 MG/DL (1.8-2.4); POTASSIUM 4.3 MMOL/L (3.6-5.0); SODIUM 139 MMOL/L (135-145)
[2019-03-13 07:13] VITALS: BP 123/85
[2019-03-13] MEDS ORDERED: ONDANSETRON 4 MG/2 ML (SDV) Z0FRAN IVP ONE (07:15)
== END 2019-03-13 07:13 | disposition home or self-care (01) ==
LOC: EDUNIT# 05:52 → ER 05:54
DX: N39.0 Urinary tract infection, site not specified (principal); F12.10 Cannabis abuse, uncomplicated; F32.9 Major depressive disorder, single episode, unspecified; F41.9 Anxiety disorder, unspecified; Z87.440 Personal history of urinary (tract) infections
CPT/HCPCS: 36415; 80053; 80306; 80320; 81000; 82150; 83690; 83735; 84703; 85025; 87077; 87088; 87186